=== PATIENT | male | born 1960 | race Caucasian/White ===

== ENCOUNTER 2016-11-13 18:41 | Inpatient (IN) | payer OTHER ==
[~2016-11-13] VITALS: Ht 182.9 cm; Wt 73.0 kg
[2016-11-13 20:42] LABS: Basophils # (auto) 0 uL; Basophils % (auto) 0.3 % (0.0-2.0); Eosinophils # (auto) 0.2 uL; Eosinophils % (auto) 1.3 % (0.0-7.0); Hematocrit 47.8 % (41.0-53.0); Hemoglobin 15.4 g/dL (13.5-17.5); Lymphocytes # (auto) 1.7 uL; Lymphocytes % (auto) 14.3 % (10.0-50.0); Mean Corpuscular Hemoglobin 28.2 pg (28.0-32.0); Mean Corpuscular Hgb Conc. 32.3 g/dL (32.0-36.0); Mean Corpuscular Volume 87.4 fL (80.0-100.0); Mean Platelet Volume 8.8 fL (7.4-10.4); Monocytes # (auto) 1.1 uL; Neutrophils # (auto) 9.1 uL; Neutrophils % (auto) 75.1 % (37.0-80.0); Platelet Count (auto) 349 10^3/uL (140-450); Red Cell Distribution Width 14.7 % (11.6-16.0); White Blood Cell 12.1 10^3/uL (4.4-10.8)
[2016-11-13 20:57] LABS: Albumin 3.8 g/dL (3.4-5.0); Anion Gap 9 (5-15); BUN/Creatinine Ratio 17.5; Blood Urea Nitrogen 27 mg/dL (7-18); Calcium 9.4 mg/dL (8.5-10.1); Carbon Dioxide 28 mmol/L (21-32); Chloride 104 mmol/L (98-107); GFR African American 61 mL/min; GFR Non-African American 50 mL/min; Glucose 97 mg/dL (74-106); Magnesium 2.5 mg/dL (1.6-2.6); Potassium 4.2 mmol/L (3.5-5.1); Sodium 141 mmol/L (136-145)
[2016-11-13 21:10] LABS: Alkaline Phosphatase 91 U/L (45-117); Aspartate Aminotransferase 16 U/L (15-37); Bilirubin, Total 0.6 mg/dL (0.2-1.0); Total Protein 7.5 g/dL (6.4-8.2)
[2016-11-13] MEDS ORDERED: SODIUM CHLORIDE 0.9% 1,000 ML IV ONE (21:22)
[2016-11-13] MEDS ORDERED: ASPirin 81 mg TAB PO ONE (21:30)
[2016-11-13] MEDS ORDERED: cloNIDine HCL 0.1 MG TAB PO ONE (21:30)
[2016-11-13] MEDS ORDERED: NITROGLYCERIN 0.2MG/HR TOPICAL PATCH TD ONE (22:15)
[2016-11-13 22:17] LABS: B-Type Natriuretic Peptide 16.08 pg/mL (0-100)
[2016-11-13 22:22] LABS: Partial Thromboplastin Time 24.8 sec (22.64-33.71); Prothrombin Time 10.3 sec (9.37-12.3)
[2016-11-13] MEDS: NICARDIPINE 25MG/250ML BAG KIT 250 ML IV SCH (22:54)
[2016-11-13] MEDS ORDERED: MORPHINE SULFATE 4 MG/ML SYRG ONE (23:12)
[2016-11-13] MEDS ORDERED: ONDANSETRON HCL 4 MG/2 ML VIAL ONE (23:12)
[2016-11-13] MEDS ORDERED: MORPHINE SULFATE 4 MG/ML SYRG IV ONE (23:15)
[2016-11-13] MEDS ORDERED: ONDANSETRON HCL 4 MG/2 ML VIAL IV ONE (23:15)
[2016-11-13] MEDS ORDERED: ENOXAPARIN SOD 80 MG/0.8ML SYRINGE SC ONE (23:30)
[2016-11-14] MEDS ORDERED: LACTULOSE 20Gm/30ML SOLN PO PRN (01:00)
[2016-11-14] MEDS ORDERED: MORPHINE SULF INJ 2 MG/ML SYRINGE 1ML IV PRN (01:00)
[2016-11-14] MEDS ORDERED: NITROGLYCERIN 0.4 MG SL TAB SL PRN (01:00)
[2016-11-14] MEDS ORDERED: cloNIDine HCL 0.1 MG TAB PO PRN (01:15)
[2016-11-14] MEDS ORDERED: PANTOPRAZOLE SODIUM 40 MG/10 ML VIAL IV ONE (01:15)
[2016-11-14] MEDS: SODIUM CHLORIDE 0.9% 1,000 ML IV SCH ×3 (01:25→22:32)
[2016-11-14] MEDS ORDERED: CLOPIDOGREL BISULFATE 75 MG TAB PO ONE (07:00)
[2016-11-14] MEDS: NICARDIPINE 25MG/250ML BAG KIT 250 ML IV SCH ×4 (07:15→18:35)
[2016-11-14] MEDS: NITROGLYCERIN 0.2MG/HR TOPICAL PATCH TD SCH (09:40)
[2016-11-14] MEDS: METOPROLOL TARTRATE 25 MG TAB PO SCH ×3 (09:52→22:28)
[2016-11-14] MEDS: ASPirin 81 mg TAB PO SCH (09:52)
[2016-11-14] MEDS: PANTOPRAZOLE SODIUM 40 MG/10 ML VIAL IV SCH (09:52)
[2016-11-14] MEDS: ENALAPRIL MALEATE 10 MG TAB PO SCH (09:52)
[2016-11-14] MEDS ORDERED: ENOXAPARIN SOD 30 MG/0.3 ML SYRINGE SC SCH (10:00)
[2016-11-14] MEDS ORDERED: ENOXAPARIN SOD 60 MG/0.6 ML SYRINGE SC ONE (11:30)
[2016-11-14] MEDS: ENOXAPARIN SOD 80 MG/0.8ML SYRINGE SC SCH (21:31)
[2016-11-14] MEDS: ATORVASTATIN 20 MG TAB PO SCH (21:31)
[2016-11-15 03:31] LABS: Basophils # (auto) 0 uL; Basophils % (auto) 0.4 % (0.0-2.0); Eosinophils # (auto) 0.4 uL; Eosinophils % (auto) 4.2 % (0.0-7.0); Hematocrit 43.4 % (41.0-53.0); Hemoglobin 14.1 g/dL (13.5-17.5); Lymphocytes % (auto) 19.9 % (10.0-50.0); Mean Corpuscular Hemoglobin 28.2 pg (28.0-32.0); Mean Corpuscular Hgb Conc. 32.6 g/dL (32.0-36.0); Mean Corpuscular Volume 86.6 fL (80.0-100.0); Mean Platelet Volume 8.3 fL (7.4-10.4); Monocytes # (auto) 1.4 uL; Monocytes % (auto) 13.2 % (0.0-12.0); Neutrophils # (auto) 6.4 uL; Neutrophils % (auto) 62.3 % (37.0-80.0); Platelet Count (auto) 300 10^3/uL (140-450); Red Cell Distribution Width 14.6 % (11.6-16.0); White Blood Cell 10.3 10^3/uL (4.4-10.8)
[2016-11-15 03:51] LABS: Albumin 3.1 g/dL (3.4-5.0); BUN/Creatinine Ratio 18.7; Calcium 8.1 mg/dL (8.5-10.1); Potassium 4.6 mmol/L (3.5-5.1)
[2016-11-15 03:53] LABS: Bilirubin, Total 0.9 mg/dL (0.2-1.0); Total Protein 6.5 g/dL (6.4-8.2)
[2016-11-15 04:05] VITALS: BP 132/83
[2016-11-15 07:53] VITALS: BP 129/75
[2016-11-15] MEDS: CLOPIDOGREL BISULFATE 75 MG TAB PO SCH (10:07)
[2016-11-15] MEDS: METOPROLOL TARTRATE 25 MG TAB PO SCH ×2 (10:07→21:44)
[2016-11-15] MEDS: ASPirin 81 mg TAB PO SCH (10:07)
[2016-11-15] MEDS: PANTOPRAZOLE SODIUM 40 MG/10 ML VIAL IV SCH (10:07)
[2016-11-15] MEDS: ENALAPRIL MALEATE 10 MG TAB PO SCH ×2 (10:08→21:45)
[2016-11-15] MEDS: NITROGLYCERIN 0.2MG/HR TOPICAL PATCH TD SCH (10:08)
[2016-11-15] MEDS: ENOXAPARIN SOD 80 MG/0.8ML SYRINGE SC SCH ×2 (10:09→21:45)
[2016-11-15 12:00] VITALS: BP 137/78
[2016-11-15 15:58] VITALS: BP 156/75
[2016-11-15 21:38] VITALS: BP 133/69
[2016-11-15] MEDS: ATORVASTATIN 20 MG TAB PO SCH (21:43)
[2016-11-16 04:40] VITALS: BP 132/73
[2016-11-16 09:00] VITALS: BP 121/74
[2016-11-16] MEDS: PANTOPRAZOLE SODIUM 40 MG/10 ML VIAL IV SCH (09:17)
[2016-11-16] MEDS: ASPirin 81 mg TAB PO SCH (09:18)
[2016-11-16] MEDS: ENOXAPARIN SOD 80 MG/0.8ML SYRINGE SC SCH ×2 (09:18→22:04)
[2016-11-16] MEDS: CLOPIDOGREL BISULFATE 75 MG TAB PO SCH (09:18)
[2016-11-16] MEDS: ENALAPRIL MALEATE 10 MG TAB PO SCH ×2 (09:19→22:04)
[2016-11-16] MEDS: METOPROLOL TARTRATE 25 MG TAB PO SCH ×2 (09:20→22:04)
[2016-11-16] MEDS: NITROGLYCERIN 0.2MG/HR TOPICAL PATCH TD SCH (09:20)
[2016-11-16 13:00] VITALS: BP 121/83
[2016-11-16 17:00] VITALS: BP 141/71
[2016-11-16 22:00] VITALS: BP 151/84
[2016-11-16] MEDS: ATORVASTATIN 20 MG TAB PO SCH (22:03)
[2016-11-17 05:00] VITALS: BP 135/80
[2016-11-17 07:40] VITALS: BP 125/77
[2016-11-17] MEDS: ASPirin 81 mg TAB PO SCH (10:04)
[2016-11-17] MEDS: PANTOPRAZOLE SODIUM 40 MG/10 ML VIAL IV SCH (10:04)
[2016-11-17] MEDS: METOPROLOL TARTRATE 25 MG TAB PO SCH ×2 (10:05→22:06)
[2016-11-17] MEDS: CLOPIDOGREL BISULFATE 75 MG TAB PO SCH (10:05)
[2016-11-17] MEDS: ENALAPRIL MALEATE 10 MG TAB PO SCH ×2 (10:05→22:05)
[2016-11-17] MEDS: ENOXAPARIN SOD 80 MG/0.8ML SYRINGE SC SCH ×2 (10:06→22:04)
[2016-11-17] MEDS ORDERED: ACETAMINOPHEN 325 MG TAB PO PRN (11:00)
[2016-11-17 12:00] VITALS: BP 137/82
[2016-11-17 16:42] VITALS: BP 119/74
[2016-11-17 22:00] VITALS: BP 132/80
[2016-11-17] MEDS: ATORVASTATIN 20 MG TAB PO SCH (22:05)
[2016-11-18] VITALS (7 sets, daily range): BP systolic 124–149; BP diastolic 80–94
[2016-11-18] MEDS ORDERED: SODIUM BICARBONATE 50ML VIAL 150 ML in D5W 5% 1,000 ML IV SCH ×2 (09:00→10:00)
[2016-11-18] MEDS: ENALAPRIL MALEATE 10 MG TAB PO SCH ×2 (09:43→21:51)
[2016-11-18] MEDS: PANTOPRAZOLE SODIUM 40 MG/10 ML VIAL IV SCH (09:43)
[2016-11-18] MEDS: METOPROLOL TARTRATE 25 MG TAB PO SCH ×2 (10:00→21:51)
[2016-11-18] MEDS: ASPirin 81 mg TAB PO SCH (11:36)
[2016-11-18] MEDS: CLOPIDOGREL BISULFATE 75 MG TAB PO SCH (11:36)
[2016-11-18] MEDS: ENOXAPARIN SOD 80 MG/0.8ML SYRINGE SC SCH (11:37)
[2016-11-18] MEDS: ATORVASTATIN 20 MG TAB PO SCH (21:50)
[2016-11-19 06:06] VITALS: BP 123/79
[2016-11-19 06:40] LABS: Basophils # (auto) 0 uL; Basophils % (auto) 0.3 % (0.0-2.0); Eosinophils # (auto) 0.5 uL; Eosinophils % (auto) 6.7 % (0.0-7.0); Hematocrit 48.2 % (41.0-53.0); Hemoglobin 15.8 g/dL (13.5-17.5); Lymphocytes # (auto) 1.7 uL; Lymphocytes % (auto) 22.2 % (10.0-50.0); Mean Corpuscular Hemoglobin 28.2 pg (28.0-32.0); Mean Corpuscular Hgb Conc. 32.8 g/dL (32.0-36.0); Mean Corpuscular Volume 85.8 fL (80.0-100.0); Mean Platelet Volume 8.5 fL (7.4-10.4); Monocytes % (auto) 12.4 % (0.0-12.0); Neutrophils # (auto) 4.5 uL; Neutrophils % (auto) 58.4 % (37.0-80.0); Platelet Count (auto) 277 10^3/uL (140-450); Red Cell Distribution Width 14.3 % (11.6-16.0); White Blood Cell 7.7 10^3/uL (4.4-10.8)
[2016-11-19 07:08] LABS: BUN/Creatinine Ratio 22.3; Calcium 9.2 mg/dL (8.5-10.1)
[2016-11-19] MEDS ORDERED: IODIXANOL 320MG/ML 100ML BTL IV ONE (07:30)
[2016-11-19] MEDS ORDERED: LIDOCAINE 2%HCL (LOCAL ANESTH.) INJ 20ML MDV ONE (07:31)
[2016-11-19] MEDS ORDERED: SODIUM CHL 0.9% 0 ML ONE (07:44)
[2016-11-19] MEDS ORDERED: ANGIOMAX 250 MG VIAL IV ONE (07:44)
[2016-11-19] MEDS ORDERED: MIDAZOLAM HCL 1MG/1ML-2 ML VIAL ONE (07:44)
[2016-11-19] MEDS ORDERED: fentaNYL CITRATE 100 MCG/2 ML VL ONE (07:44)
[2016-11-19] MEDS ORDERED: EPTIFIBATIDE INJ (2MG/ML) 10ML VIAL IV ONE (07:45)
[2016-11-19] MEDS ORDERED: VERAPAMIL 2.5MG/ML INJ 2ML VIAL IV ONE (07:45)
[2016-11-19] MEDS ORDERED: SODIUM BICARBONATE 50ML VIAL 150 ML in D5W 5% 1,000 ML IV SCH (08:00)
[2016-11-19 09:12] VITALS: BP 149/75
[2016-11-19] MEDS ORDERED: SODIUM CHLORIDE 0.9% 1,000 ML IV SCH (09:15)
[2016-11-19] MEDS: ASPirin 81 mg TAB PO SCH (10:24)
[2016-11-19] MEDS: METOPROLOL TARTRATE 25 MG TAB PO SCH ×2 (10:24→21:30)
[2016-11-19] MEDS: PANTOPRAZOLE SODIUM 40 MG/10 ML VIAL IV SCH (10:25)
[2016-11-19] MEDS: ENALAPRIL MALEATE 10 MG TAB PO SCH ×2 (10:25→21:30)
[2016-11-19 12:30] VITALS: BP 137/75
[2016-11-19 17:02] VITALS: BP 120/76
[2016-11-19 18:00] VITALS: BP 132/69
[2016-11-19] MEDS: ATORVASTATIN 20 MG TAB PO SCH (21:29)
[2016-11-20 05:00] VITALS: BP 133/77
[2016-11-20 07:30] LABS: BUN/Creatinine Ratio 21.3; Calcium 9.2 mg/dL (8.5-10.1); Potassium 4.8 mmol/L (3.5-5.1)
[2016-11-20 09:00] VITALS: BP 99/50
[2016-11-20] MEDS: ASPirin 81 mg TAB PO SCH (09:14)
[2016-11-20] MEDS: ENALAPRIL MALEATE 10 MG TAB PO SCH ×2 (09:14→21:39)
[2016-11-20] MEDS: METOPROLOL TARTRATE 25 MG TAB PO SCH ×2 (09:15→21:39)
[2016-11-20] MEDS: CLOPIDOGREL BISULFATE 75 MG TAB PO SCH (09:16)
[2016-11-20] MEDS: PANTOPRAZOLE SODIUM 40 MG/10 ML VIAL IV SCH (09:16)
[2016-11-20 12:48] VITALS: BP 125/77
[2016-11-20 16:38] VITALS: BP 108/71
[2016-11-20 18:21] VITALS: BP 119/74
[2016-11-20 21:35] VITALS: BP 122/69
[2016-11-20] MEDS: ATORVASTATIN 20 MG TAB PO SCH (21:38)
[2016-11-21 04:59] VITALS: BP 139/73
[2016-11-21 08:00] VITALS: BP 119/68
[2016-11-21] MEDS: PANTOPRAZOLE SODIUM 40 MG/10 ML VIAL IV SCH (10:00)
[2016-11-21] MEDS: CLOPIDOGREL BISULFATE 75 MG TAB PO SCH (10:00)
[2016-11-21] MEDS: ASPirin 81 mg TAB PO SCH (10:00)
[2016-11-21] MEDS: METOPROLOL TARTRATE 25 MG TAB PO SCH (10:21)
[2016-11-21] MEDS: ENALAPRIL MALEATE 10 MG TAB PO SCH (10:22)
[2016-11-21 12:30] VITALS: BP 124/68
[2016-11-21 17:00] VITALS: BP 116/71
== END 2016-11-21 18:15 | disposition left against medical advice (07) | DRG 190 ==
LOC: ER 18:45 → TELE 18:46 → DOU IN ICU 11-15 03:44 → TELE-EAST 11-15 17:35
PROVIDERS: ADMIT Family Medicine; ATTEND Internal Medicine
PROC: 4A023N7 Measurement of Cardiac Sampling and Pressure, Left Heart, Percutaneous Approach (ICD-10-PCS; principal; 2016-11-19)
PROC: B2111ZZ Fluoroscopy of Multiple Coronary Arteries using Low Osmolar Contrast (ICD-10-PCS; 2016-11-19)
PROC: B2151ZZ Fluoroscopy of Left Heart using Low Osmolar Contrast (ICD-10-PCS; 2016-11-19)
PROC: B41G1ZZ Fluoroscopy of Left Lower Extremity Arteries using Low Osmolar Contrast (ICD-10-PCS; 2016-11-19)
DX: I21.4 Non-ST elevation (NSTEMI) myocardial infarction (principal); N17.0 Acute kidney failure with tubular necrosis; I10 Essential (primary) hypertension; F15.10 Other stimulant abuse, uncomplicated; I25.10 Atherosclerotic heart disease of native coronary artery without angina pectoris; E78.5 Hyperlipidemia, unspecified; F12.90 Cannabis use, unspecified, uncomplicated; F17.210 Nicotine dependence, cigarettes, uncomplicated; I25.2 Old myocardial infarction; Z95.5 Presence of coronary angioplasty implant and graft; Z71.51 Drug abuse counseling and surveillance of drug abuser; Z91.19 Patient's noncompliance with other medical treatment and regimen; Z84.89 Family history of other specified conditions; Z80.9 Family history of malignant neoplasm, unspecified
CPT/HCPCS: 93458; 96372; 96374; 96375; 99285; G0278; 36415; 36600; 70450; 71010; 71020; 71250; 74176; 80048; 80053; 80061; 82805; 83690; 83735; 83880; 84439; 84443; 84481; 84484; 85025; 85379; 85610; 85730; 86703; 87081; 93005; 93306; 93886; 94761; 99152; C9113; G0434; J2250; J2405; Q9967

== ENCOUNTER 2018-07-22 05:38 | Emergency (ER) | payer OTHER ==
[~2018-07-22] VITALS: Ht 182.9 cm; Wt 81.6 kg
[2018-07-22 07:23] VITALS: BP 148/81
[2018-07-22] MEDS ORDERED: cefTRIAXone SOD 1,000 MG VL IM ONE (07:30)
[2018-07-22] MEDS ORDERED: TETANUS-DIPTH-ACEL PERTUSSIS 0.5ML SYRG IM ONE (07:30)
== END 2018-07-22 08:01 | disposition home or self-care (01) ==
LOC: ER 05:40
DX: S51.832A Puncture wound without foreign body of left forearm, initial encounter (principal); B99.9 Unspecified infectious disease; F17.210 Nicotine dependence, cigarettes, uncomplicated; F12.10 Cannabis abuse, uncomplicated; I10 Essential (primary) hypertension; I25.2 Old myocardial infarction; E78.5 Hyperlipidemia, unspecified; W54.0XXA Bitten by dog, initial encounter; Y93.89 Activity, other specified; Y99.8 Other external cause status; Y92.89 Other specified places as the place of occurrence of the external cause
CPT/HCPCS: 90471; 90715; 96372; 99284; J0696

== ENCOUNTER 2019-09-04 02:48 | Emergency (ER) | payer OTHER ==
[~2019-09-04] VITALS: Ht 182.9 cm; Wt 77.1 kg
[2019-09-04 03:10] VITALS: BP 167/99
[2019-09-04] MEDS ORDERED: HYDROcodone-ACET 10/325MG TAB PO ONE (05:00)
[2019-09-04] MEDS ORDERED: AMOXICILLIN/CLAVUL 875 MG TAB PO ONE (05:00)
[2019-09-04] MEDS ORDERED: cefTRIAXone SOD 1,000 MG VL IM ONE (05:00)
== END 2019-09-04 06:42 | disposition home or self-care (01) ==
LOC: ER 02:53
DX: S41.112A Laceration without foreign body of left upper arm, initial encounter (principal); S41.152A Open bite of left upper arm, initial encounter; E78.5 Hyperlipidemia, unspecified; I10 Essential (primary) hypertension; I25.2 Old myocardial infarction; F17.210 Nicotine dependence, cigarettes, uncomplicated; W54.0XXA Bitten by dog, initial encounter; Y93.01 Activity, walking, marching and hiking; Y92.89 Other specified places as the place of occurrence of the external cause; Y99.8 Other external cause status
CPT/HCPCS: 12001; 73090; 73120; 96372; 99284; J0696; 12002

== ENCOUNTER 2022-08-28 23:11 | Inpatient (IN) | payer OTHER ==
[~2022-08-28] VITALS: Ht 185.4 cm; Wt 77.3 kg
[2022-08-29 00:47] LABS: Basophils # (auto) 0.1 10 ^3/uL (0-0.2); Basophils % (auto) 0.9 % (0.0-2.0); Eosinophils # (auto) 0.1 10 ^3/uL (0-0.8); Eosinophils % (auto) 1.2 % (0.0-7.0); Hematocrit 47.1 % (41.0-53.0); Hemoglobin 15.1 g/dL (13.5-17.5); Lymphocytes # (auto) 2.2 10 ^3/uL (0.4-5.4); Lymphocytes % (auto) 21.3 % (10.0-50.0); Mean Corpuscular Hemoglobin 27.9 pg (28.0-32.0); Mean Corpuscular Volume 87.2 fL (80.0-100.0); Monocytes # (auto) 0.8 10 ^3/uL (0-1.3); Monocytes % (auto) 8.1 % (0.0-12.0); Neutrophils % (auto) 68.5 % (37.0-80.0); Nucleated Red Blood Cells % 0.1 %; Red Blood Cells 5.41 10^6/uL (4.5-5.90); Red Cell Distribution Width 14.3 % (11.8-14.3); White Blood Cell 10.2 10^3/uL (4.4-10.8)
[2022-08-29 01:04] LABS: Albumin 3.6 g/dL (3.4-5.0); BUN/Creatinine Ratio 16.9; Calcium 9.5 mg/dL (8.5-10.1); Potassium 4.4 mmol/L (3.5-5.1)
[2022-08-29 01:07] LABS: Bilirubin, Total 1.1 mg/dL (0.2-1.0); Total Protein 7.6 g/dL (6.4-8.2)
[2022-08-29 02:38] LABS: Urine Bacteria NONE SEEN /hpf (None Seen); Urine Blood Negative /uL (Negative); Urine Hyaline Cast FEW /lpf (0 - 2); Urine Mucus FEW (None Seen); Urine Specific Gravity 1.029 (1.001-1.035); Urine WBC 2 /hpf (0 - 3)
[2022-08-29] MEDS ORDERED: ONDANSETRON HCL 4 MG/2 ML VIAL IV PRN (12:00)
[2022-08-29] MEDS ORDERED: NITROGLYCERIN 0.4 MG SL TAB SL PRN (12:00)
[2022-08-29] MEDS ORDERED: MORPHINE SULFATE INJ 2 MG/ml SYRG IV PRN (12:00)
[2022-08-29] MEDS ORDERED: ALBUTEROL SULF 2.5 MG/0.5ML(0.5%) NEB SOLN NEB PRN (12:00)
[2022-08-29] MEDS ORDERED: DOCUSATE SOD 100 MG CAP PO PRN (12:00)
[2022-08-29] MEDS ORDERED: IPRATROPIUM BROM 0.5 MG/2.5ML INH SOL NEB PRN (12:00)
[2022-08-29 12:55] LABS: INR 1.06 (0.9-1.15)
[2022-08-29] MEDS ORDERED: IOHEXOL 350 MG/ML 100ML IJ ONE (14:30)
[2022-08-29] MEDS: SODIUM CHLORIDE 0.9% 1,000 ML IV SCH ×2 (15:27→20:20)
[2022-08-29] MEDS: methylPREDNISolone SOD SUCC 125 MG/2 ML VL IV ONE ×2 (15:28→17:08)
[2022-08-29 16:22] LABS: Cholesterol 112 mg/dL (< 200); HDL Cholesterol 40 mg/dL (40-59); LDL Cholesterol 70 mg/dL (< 100); Triglycerides 71 mg/dL (< 150)
[2022-08-29] MEDS: methylPREDNISolone SOD SUCC 125 MG/2 ML VL IV SCH ×2 (17:13→22:59)
[2022-08-29 22:52] VITALS: BP 144/83
[2022-08-29] MEDS: ENOXAPARIN SOD 80 MG/0.8ML SYRINGE SC SCH (22:59)
[2022-08-29] MEDS: ATORVASTATIN 20 MG TAB PO SCH (22:59)
[2022-08-29] MEDS ORDERED: ERGO1CAP12 PO (23:13)
[2022-08-29] MEDS ORDERED: ASPI-325 PO (23:13)
[2022-08-29] MEDS ORDERED: MET25T PO (23:13)
[2022-08-29] MEDS ORDERED: ATOR20TA50 PO (23:13)
[2022-08-30] MEDS: SODIUM CHLORIDE 0.9% 1,000 ML IV SCH ×2 (04:40→11:49)
[2022-08-30 04:57] VITALS: BP 140/80
[2022-08-30] MEDS: methylPREDNISolone SOD SUCC 125 MG/2 ML VL IV SCH ×3 (05:20→20:53)
[2022-08-30 06:23] LABS: Hemoglobin 14.5 g/dL (13.5-17.5); Mean Corpuscular Hemoglobin 29.3 pg (28.0-32.0); Mean Corpuscular Hgb Conc. 34.4 g/dL (32.0-36.0); Mean Corpuscular Volume 85.2 fL (80.0-100.0); Red Blood Cells 4.93 10^6/uL (4.5-5.90); Red Cell Distribution Width 14.1 % (11.8-14.3); White Blood Cell 11.2 10^3/uL (4.4-10.8)
[2022-08-30 06:41] LABS: Albumin 3.2 g/dL (3.4-5.0); BUN/Creatinine Ratio 18.3; Calcium 9.1 mg/dL (8.5-10.1); Potassium 4.3 mmol/L (3.5-5.1)
[2022-08-30 06:44] LABS: Bilirubin, Total 0.7 mg/dL (0.2-1.0); Total Protein 6.8 g/dL (6.4-8.2)
[2022-08-30 06:54] LABS: Basophils % (manual) 0 (0.0-2.0); Blast Cells 0; Eosinophils % (manual) 0 (0-7); Metamyelocytes % 0; Myelocytes % 0; Promyelocytes % 0; Reactive Lymphocytes 0
[2022-08-30 08:00] VITALS: BP 148/95
[2022-08-30] MEDS: LISINOPRIL 10 MG TAB PO SCH (08:46)
[2022-08-30] MEDS: ENOXAPARIN SOD 80 MG/0.8ML SYRINGE SC SCH ×2 (08:47→20:53)
[2022-08-30] MEDS: PANTOPRAZOLE 40 MG TAB PO SCH (08:53)
[2022-08-30 08:56] VITALS: BP 148/95
[2022-08-30] MEDS ORDERED: ENOXAPARIN SOD 40 MG/0.4 ML SYRINGE SC SCH (10:00)
[2022-08-30 13:00] VITALS: BP 157/86
[2022-08-30] MEDS ORDERED: METOPROLOL TARTRATE 25 MG TAB PO ONE (13:00)
[2022-08-30 13:36] LABS: Band Neutrophils % (manual) 10; Lymphocytes % (manual) 5 (10.0-50.0); Monocytes % (manual) 1 (0-12)
[2022-08-30] MEDS: ASPirin 81 mg TAB PO SCH (13:38)
[2022-08-30 17:00] VITALS: BP 134/84
[2022-08-30] MEDS: ATORVASTATIN 20 MG TAB PO SCH (20:53)
[2022-08-30] MEDS: METOPROLOL TARTRATE 25 MG TAB PO SCH (20:54)
[2022-08-30 22:00] VITALS: BP 122/68
[2022-08-31 05:00] VITALS: BP 112/67
[2022-08-31] MEDS: methylPREDNISolone SOD SUCC 125 MG/2 ML VL IV SCH ×2 (05:50→14:20)
[2022-08-31 08:00] VITALS: BP 142/79
[2022-08-31 09:00] VITALS: BP 142/79
[2022-08-31] MEDS ORDERED: cefTRIAXone 1GM/50ML D5W 50 ML IV SCH (09:30)
[2022-08-31] MEDS ORDERED: AZITHROMYCIN 250 MG TAB PO SCH (10:00)
[2022-08-31] MEDS: ASPirin 81 mg TAB PO SCH (10:04)
[2022-08-31] MEDS: PANTOPRAZOLE 40 MG TAB PO SCH (10:04)
[2022-08-31] MEDS: METOPROLOL TARTRATE 25 MG TAB PO SCH (10:05)
[2022-08-31] MEDS: LISINOPRIL 10 MG TAB PO SCH (10:05)
[2022-08-31] MEDS: ENOXAPARIN SOD 80 MG/0.8ML SYRINGE SC SCH (10:05)
[2022-08-31 13:00] VITALS: BP 120/72
[2022-08-31] MEDS ORDERED: ALBUAER3 IN (13:06)
[2022-08-31] MEDS ORDERED: AZIT250T8 PO (13:06)
[2022-08-31] MEDS ORDERED: LISI-716 PO (13:06)
[2022-08-31] MEDS ORDERED: METH4PAK PO (13:06)
[2022-08-31 15:25] VITALS: BP 120/72
== END 2022-08-31 17:03 | disposition home or self-care (01) | DRG 140 ==
LOC: ER 23:11 → TELE 08-29 12:01 → TELE-WESTW 08-29 22:11
PROVIDERS: ADMIT Nurse Practitioner Family; ATTEND Internal Medicine
DX: J44.1 Chronic obstructive pulmonary disease with (acute) exacerbation (principal); E05.90 Thyrotoxicosis, unspecified without thyrotoxic crisis or storm; E78.5 Hyperlipidemia, unspecified; F15.10 Other stimulant abuse, uncomplicated; F17.210 Nicotine dependence, cigarettes, uncomplicated; I10 Essential (primary) hypertension; R09.02 Hypoxemia; R06.03 Acute respiratory distress; Z20.822 Contact with and (suspected) exposure to COVID-19; Z59.00 Homelessness unspecified; Z98.61 Coronary angioplasty status; Z85.810 Personal history of malignant neoplasm of tongue; I25.2 Old myocardial infarction
CPT/HCPCS: 36415; 36600; 70486; 70490; 71045; 71275; 80053; 80061; 81001; 82805; 83880; 84443; 84484; 85007; 85025; 85027; 85379; 85610; 87426; 87804; 93005; 93306; 94640; 96374; G0378; J0696

== ENCOUNTER 2022-09-06 17:30 | Emergency (ER) | payer OTHER ==
[~2022-09-06] VITALS: Ht 182.9 cm; Wt 85.0 kg
[~2022-09-06 17:30] MED LIST: ALBUAER3 IN; ASPI-325 PO; ATOR20TA50 PO; AZIT250T8 PO; ERGO1CAP12 PO; LISI-716 PO; MET25T PO; METH4PAK PO
[2022-09-06 18:03] LABS: Basophils # (auto) 0.1 10 ^3/uL (0-0.2); Basophils % (auto) 0.5 % (0.0-2.0); Eosinophils # (auto) 0 10 ^3/uL (0-0.8); Eosinophils % (auto) 0.2 % (0.0-7.0); Hematocrit 51.2 % (41.0-53.0); Lymphocytes # (auto) 0.6 10 ^3/uL (0.4-5.4); Lymphocytes % (auto) 4.1 % (10.0-50.0); Mean Corpuscular Hemoglobin 28.8 pg (28.0-32.0); Mean Corpuscular Hgb Conc. 33.2 g/dL (32.0-36.0); Mean Corpuscular Volume 86.7 fL (80.0-100.0); Monocytes % (auto) 6.5 % (0.0-12.0); Neutrophils # (auto) 13.6 10 ^3/uL (1.6-8.6); Neutrophils % (auto) 88.7 % (37.0-80.0); Nucleated Red Blood Cells % 0.1 %; Red Blood Cells 5.91 10^6/uL (4.5-5.90); Red Cell Distribution Width 14.6 % (11.8-14.3); White Blood Cell 15.3 10^3/uL (4.4-10.8)
[2022-09-06 18:18] LABS: Alanine Aminotransferase 51 U/L (16-61); Albumin 3.5 g/dL (3.4-5.0); Anion Gap 5 (5-15); Aspartate Aminotransferase 17 U/L (15-37); BUN/Creatinine Ratio 25.4; Blood Urea Nitrogen 34 mg/dL (7-18); Calcium 9.1 mg/dL (8.5-10.1); Carbon Dioxide 31 mmol/L (21-32); Chloride 101 mmol/L (98-107); GFR African American 70 mL/min; GFR Non-African American 58 mL/min; Glucose 83 mg/dL (74-106); Potassium 5.1 mmol/L (3.5-5.1); Sodium 137 mmol/L (136-145)
[2022-09-06 18:20] LABS: Alkaline Phosphatase 72 U/L (45-117); Bilirubin, Total 1.2 mg/dL (0.2-1.0); Total Protein 6.8 g/dL (6.4-8.2)
[2022-09-06] MEDS ORDERED: IOHEXOL 350 MG/ML 100ML IJ ONE ×2 (19:58→20:02)
[2022-09-06] MEDS ORDERED: cefTRIAXone 1GM/50ML D5W 50 ML IV ONE (20:45)
[2022-09-06] MEDS ORDERED: SODIUM CHLORIDE 0.9% 1,000 ML IV ONE ×2 (20:45)
[2022-09-06] MEDS ORDERED: metroNIDAZOLE 500MG/100ML 100 ML IV ONE (20:45)
[2022-09-06] MEDS ORDERED: MORPHINE SULFATE 4 MG/ML SYR/VIAL IV ONE (21:00)
[2022-09-06] MEDS ORDERED: ONDANSETRON HCL 4 MG/2 ML VIAL IV ONE (21:00)
[2022-09-06 21:47] VITALS: BP 126/70
== END 2022-09-06 22:03 | disposition short-term general hospital (02) ==
LOC: ER 17:30
DX: U07.1 COVID-19 (principal); K29.70 Gastritis, unspecified, without bleeding; I71.02 Dissection of abdominal aorta; I10 Essential (primary) hypertension; I25.2 Old myocardial infarction; E78.5 Hyperlipidemia, unspecified; E03.9 Hypothyroidism, unspecified; J44.9 Chronic obstructive pulmonary disease, unspecified; F17.210 Nicotine dependence, cigarettes, uncomplicated; Z79.82 Long term (current) use of aspirin; Z79.899 Other long term (current) drug therapy
CPT/HCPCS: 36415; 71045; 74175; 74176; 80053; 83605; 84484; 85025; 87040; 87426; 93005; 96365; 96368; 96375; 99285; J0696; J2270; J2405; J3490; J7030; Q9967

== ENCOUNTER 2023-03-25 16:38 | Inpatient (IN) | payer OTHER ==
[~2023-03-25] VITALS: Ht 182.9 cm; Wt 64.8 kg
[~2023-03-25 16:38] MED LIST changes: +AZIT-81 PO; -AZIT250T8 PO; -LISI-716 PO; +LISI10TA34 PO
[2023-03-25] MEDS ORDERED: SODIUM CHLORIDE 0.9% 500 ML IV ONE (17:00)
[2023-03-25] MEDS ORDERED: ONDANSETRON HCL 4 MG/2 ML VIAL IV ONE (17:00)
[2023-03-25 17:39] LABS: Albumin 3.9 g/dL (3.4-5.0); Calcium 9.6 mg/dL (8.5-10.1); Potassium 4.3 mmol/L (3.5-5.1)
[2023-03-25 17:42] LABS: BUN/Creatinine Ratio 11.5 (10.0-20.0); Total Protein 7.4 g/dL (6.4-8.2)
[2023-03-25 18:10] LABS: Basophils # (auto) 0 10 ^3/uL (0-0.2); Basophils % (auto) 0.2 % (0.0-2.0); Eosinophils # (auto) 0.1 10 ^3/uL (0-0.8); Eosinophils % (auto) 0.3 % (0.0-7.0); Hematocrit 46.9 % (41.0-53.0); Hemoglobin 15.1 g/dL (13.5-17.5); Lymphocytes # (auto) 1.9 10 ^3/uL (0.4-5.4); Lymphocytes % (auto) 10.4 % (10.0-50.0); Mean Corpuscular Hemoglobin 28.1 pg (28.0-32.0); Mean Corpuscular Hgb Conc. 32.2 g/dL (32.0-36.0); Mean Corpuscular Volume 87.4 fL (80.0-100.0); Monocytes # (auto) 1.6 10 ^3/uL (0-1.3); Monocytes % (auto) 8.8 % (0.0-12.0); Neutrophils # (auto) 14.5 10 ^3/uL (1.6-8.6); Neutrophils % (auto) 80.3 % (37.0-80.0); Nucleated Red Blood Cells % 0.3 %; Red Blood Cells 5.36 10^6/uL (4.5-5.90); Red Cell Distribution Width 14.5 % (11.8-14.3)
[2023-03-25] MEDS ORDERED: metroNIDAZOLE 500MG/100ML 100 ML IV ONE (23:45)
[2023-03-25] MEDS ORDERED: LACTATED RINGER'S 1,850 ML IV ONE (23:45)
[2023-03-25] MEDS ORDERED: CIPROFLOXACIN 400MG/200ML 200 ML IV ONE (23:45)
[2023-03-26] MEDS ORDERED: ONDANSETRON HCL 4 MG/2 ML VIAL IV ONE (00:15)
[2023-03-26] MEDS ORDERED: HYDROcodone-ACET 5/325MG TAB PO PRN (00:15)
[2023-03-26] MEDS ORDERED: SODIUM CHLORIDE 0.9% 1,000 ML IV SCH (00:15)
[2023-03-26] MEDS ORDERED: MORPHINE SULFATE INJ 2 MG/ml SYRG IV PRN ×2 (00:15)
[2023-03-26] MEDS ORDERED: NITROGLYCERIN 0.4 MG SL TAB SL PRN (00:15)
[2023-03-26] MEDS ORDERED: ACETAMINOPHEN 325 MG TAB PO PRN (00:15)
[2023-03-26] MEDS ORDERED: MORPHINE SULFATE 4 MG/ML SYR/VIAL IV ONE (00:15)
[2023-03-26] MEDS ORDERED: ONDANSETRON HCL 4 MG/2 ML VIAL IV PRN (00:15)
[2023-03-26 01:22] VITALS: PULSE 98; RESP 20; O2SAT 98
[2023-03-26] MEDS: PIPERACILLIN-TAZOB 2.25GM 50 ML IV SCH ×3 (01:33→22:26)
[2023-03-26 02:00] VITALS: PULSE 97; RESP 18; O2SAT 95
[2023-03-26 08:00] VITALS: PULSE 102; RESP 16; O2SAT 96
[2023-03-26] MEDS: SODIUM CHLORIDE 0.9% 1,000 ML IV SCH ×2 (11:44→22:27)
[2023-03-26 13:45] LABS: Basophils # (auto) 0.1 10 ^3/uL (0-0.2); Basophils % (auto) 0.5 % (0.0-2.0); Eosinophils # (auto) 0 10 ^3/uL (0-0.8); Eosinophils % (auto) 0.1 % (0.0-7.0); Hematocrit 40.5 % (41.0-53.0); Hemoglobin 13.1 g/dL (13.5-17.5); Lymphocytes # (auto) 0.7 10 ^3/uL (0.4-5.4); Lymphocytes % (auto) 4.7 % (10.0-50.0); Mean Corpuscular Hemoglobin 28.1 pg (28.0-32.0); Mean Corpuscular Hgb Conc. 32.5 g/dL (32.0-36.0); Mean Corpuscular Volume 86.5 fL (80.0-100.0); Monocytes % (auto) 6.7 % (0.0-12.0); Neutrophils # (auto) 12.6 10 ^3/uL (1.6-8.6); Red Blood Cells 4.68 10^6/uL (4.5-5.90); Red Cell Distribution Width 14.7 % (11.8-14.3); White Blood Cell 14.3 10^3/uL (4.4-10.8)
[2023-03-26 13:48] LABS: Calcium 8.8 mg/dL (8.5-10.1); Potassium 4.5 mmol/L (3.5-5.1)
[2023-03-26 13:52] LABS: BUN/Creatinine Ratio 17.1 (10.0-20.0)
[2023-03-26] MEDS ORDERED: SODIUM CHLORIDE 0.9% 500 ML IV ONE (14:30)
[2023-03-26 14:56] LABS: Basophils # (auto) 0 10 ^3/uL (0-0.2); Basophils % (auto) 0.2 % (0.0-2.0); Eosinophils # (auto) 0 10 ^3/uL (0-0.8); Eosinophils % (auto) 0.1 % (0.0-7.0); Hematocrit 37.8 % (41.0-53.0); Hemoglobin 12.2 g/dL (13.5-17.5); Lymphocytes # (auto) 0.9 10 ^3/uL (0.4-5.4); Mean Corpuscular Hemoglobin 28.4 pg (28.0-32.0); Mean Corpuscular Hgb Conc. 32.3 g/dL (32.0-36.0); Mean Corpuscular Volume 87.9 fL (80.0-100.0); Monocytes # (auto) 0.7 10 ^3/uL (0-1.3); Monocytes % (auto) 4.9 % (0.0-12.0); Neutrophils # (auto) 12.7 10 ^3/uL (1.6-8.6); Neutrophils % (auto) 88.8 % (37.0-80.0); Red Cell Distribution Width 14.4 % (11.8-14.3); White Blood Cell 14.4 10^3/uL (4.4-10.8)
[2023-03-26 17:20] LABS: Urine Bacteria FEW /hpf (None Seen); Urine Blood Negative /uL (Negative); Urine Hyaline Cast FEW /lpf (0 - 2); Urine Specific Gravity 1.009 (1.001-1.035); Urine WBC 2 /hpf (0 - 3)
[2023-03-26 17:43] LABS: Protein, Urine 23.6 mg/dL (0.0-11.9)
[2023-03-26 19:30] VITALS: PULSE 117; RESP 13; O2SAT 100
[2023-03-26] MEDS: HEPARIN SODIUM (PORCINE) 5000 UNITS/ML 1ML VIAL SC SCH (22:27)
[2023-03-27 05:02] LABS: Basophils # (auto) 0 10 ^3/uL (0-0.2); Basophils % (auto) 0.1 % (0.0-2.0); Eosinophils # (auto) 0 10 ^3/uL (0-0.8); Eosinophils % (auto) 0.1 % (0.0-7.0); Hematocrit 36.2 % (41.0-53.0); Hemoglobin 12.1 g/dL (13.5-17.5); Lymphocytes # (auto) 0.6 10 ^3/uL (0.4-5.4); Mean Corpuscular Hemoglobin 28.8 pg (28.0-32.0); Mean Corpuscular Hgb Conc. 33.5 g/dL (32.0-36.0); Monocytes # (auto) 1.7 10 ^3/uL (0-1.3); Monocytes % (auto) 12.8 % (0.0-12.0); Neutrophils # (auto) 10.6 10 ^3/uL (1.6-8.6); Red Blood Cells 4.21 10^6/uL (4.5-5.90); Red Cell Distribution Width 14.4 % (11.8-14.3); White Blood Cell 12.9 10^3/uL (4.4-10.8)
[2023-03-27 05:21] LABS: Albumin 2.1 g/dL (3.4-5.0); Calcium 6.7 mg/dL (8.5-10.1); Magnesium 1.6 mg/dL (1.6-2.6); Potassium 4.1 mmol/L (3.5-5.1)
[2023-03-27 05:25] LABS: BUN/Creatinine Ratio 22.2 (10.0-20.0); Bilirubin, Total 1.2 mg/dL (0.2-1.0); Phosphorus 2.6 mg/dL (2.5-4.90); Total Protein 4.7 g/dL (6.4-8.2)
[2023-03-27 08:00] VITALS: PULSE 98; RESP 20; O2SAT 97
[2023-03-27] MEDS: SODIUM CHLORIDE 0.9% 1,000 ML IV SCH ×2 (09:34→17:30)
[2023-03-27] MEDS: HEPARIN SODIUM (PORCINE) 5000 UNITS/ML 1ML VIAL SC SCH ×2 (10:07→21:59)
[2023-03-27] MEDS: FAMOTIDINE 20 MG TAB PO SCH (10:08)
[2023-03-27] MEDS: PIPERACILLIN-TAZOB 2.25GM 50 ML IV SCH (10:08)
[2023-03-27 19:50] VITALS: BP 88/55; PULSE 102; PULSE 103; RESP 16; TEMP 97.5; TEMP 97.8; O2SAT 98
[2023-03-27 20:00] VITALS: PULSE 103
[2023-03-27 20:55] VITALS: BP 110/65
[2023-03-27 21:43] VITALS: BP 110/65; PULSE 103; RESP 18; TEMP 98.3; O2SAT 98
[2023-03-27] MEDS: PIPERACILLIN-TAZOB 3.375GM 100 ML IV SCH ×2 (21:51→21:58)
[2023-03-28] VITALS: BP 100/62; PULSE 95; RESP 16; TEMP 97.9; O2SAT 98
[2023-03-28] MEDS: PIPERACILLIN-TAZOB 3.375GM 100 ML IV SCH ×2 (02:45→09:06)
[2023-03-28] MEDS: SODIUM CHLORIDE 0.9% 1,000 ML IV SCH (03:30)
[2023-03-28 04:46] VITALS: BP 98/64; PULSE 95; RESP 18; TEMP 97.5; O2SAT 99
[2023-03-28 05:43] LABS: Potassium 4.4 mmol/L (3.5-5.1)
[2023-03-28 05:50] LABS: Albumin 2.3 g/dL (3.4-5.0); BUN/Creatinine Ratio 18.5 (10.0-20.0); Total Protein 5.2 g/dL (6.4-8.2)
[2023-03-28 08:00] VITALS: BP 108/68; PULSE 82; PULSE 89; RESP 16; TEMP 97.3; O2SAT 98
[2023-03-28] MEDS: FAMOTIDINE 20 MG TAB PO SCH (09:06)
[2023-03-28] MEDS: HEPARIN SODIUM (PORCINE) 5000 UNITS/ML 1ML VIAL SC SCH (09:15)
[2023-03-28] MEDS ORDERED: FAMO20TA10 PO (11:56)
[2023-03-28] MEDS ORDERED: METR-344 PO (11:56)
[2023-03-28] MEDS ORDERED: CIPR-173 PO (12:27)
[2023-03-28 13:00] VITALS: BP 107/70; PULSE 83; RESP 20; TEMP 98.2; O2SAT 99
[2023-03-30 10:26] LABS: Hepatitis B Surface Antibody Negative (Negative)
[2023-03-30 10:38] LABS: Hepatitis A Total Antibody Positive (Negative)
[2023-03-30 12:15] LABS: Hepatitis A Ab IgM Negative
[2023-03-30 12:16] LABS: Hepatitis B Core IgM Negative
[2023-03-30 12:18] LABS: Hepatitis C Antibody Negative (Negative)
== END 2023-03-28 17:35 | disposition home or self-care (01) | DRG 249 ==
LOC: ER 16:38 → TELE 03-26 00:15 → TELE-CENTR 03-27 19:27
PROVIDERS: ADMIT Nurse Practitioner; ATTEND Nurse Practitioner
DX: K52.9 Noninfective gastroenteritis and colitis, unspecified (principal); N17.0 Acute kidney failure with tubular necrosis; E87.1 Hypo-osmolality and hyponatremia; E86.0 Dehydration; J44.9 Chronic obstructive pulmonary disease, unspecified; E78.5 Hyperlipidemia, unspecified; N18.2 Chronic kidney disease, stage 2 (mild); I12.9 Hypertensive chronic kidney disease with stage 1 through stage 4 chronic kidney disease, or unspecified chronic kidney disease; R80.9 Proteinuria, unspecified; I25.10 Atherosclerotic heart disease of native coronary artery without angina pectoris; I25.2 Old myocardial infarction; D72.829 Elevated white blood cell count, unspecified; Z68.1 Body mass index [BMI] 19.9 or less, adult
CPT/HCPCS: 36415; 74176; 76705; 76775; 80048; 80053; 80074; 81001; 82270; 82570; 83690; 83735; 84100; 84156; 85025; 86704; 86706; 86708; 86803; 87340; G0378; J2405; J2543; J3490

== ENCOUNTER 2024-10-27 05:40 | Inpatient (IN) | payer MEDICAID, OTHER ==
[~2024-10-27] VITALS: Ht 182.9 cm; Wt 65.8 kg
[~2024-10-27 05:40] MED LIST changes: -AZIT-81 PO; +CIPR-173 PO; +FAMO20TA10 PO; -METH4PAK PO; +METR-344 PO
--- NOTE | 2024-10-27 06:19 | ED.PDOC ---
GI ASSESSMENT HPI Comments 64 y/o M, with PMHX of cancer, COPD, HLD, HTN, [place], and thyroid presents to the ED for CC of blood in stool. 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 Patient relays, having symptoms of abdominal pain accompanied by nausea, vomiting, and diarrhea. Patient comments on, current 03/16 pain. Patient is currently taking Metoprolol for his HTN; has been noncompliant due to symptoms. Patient denies chest pain, shortness of breath, fever, or weakness. No other symptoms or modifying factors at this time. Chief Complaint: GI Bleed Time Seen by MD: 06:16 Primary Care Provider: NONE Reviewed Notes: Nurses Notes, Medications, Allergies Allergies: Coded Allergies: NO KNOWN ALLERGIES (Unverified , 01/25/16) Home Meds Active Scripts Ciprofloxacin Hcl (Cipro) 500 Mg Tab, 1 TAB PO BID, #14 TAB Prov:AJ TURNER NP 03/28/23 Metronidazole (Flagyl) 500 Mg Tab, 1 TAB PO BID, #14 TAB Prov:AJ TURNER NP 03/28/23 Famotidine (PEPCID TABLET) 20 Mg Tb, 1 TAB PO BID, #60 TAB 5 Refills Prov:AJ TURNER NP 03/28/23 Albuterol Sulfate (VENTOLIN MDI) 90 Mcg Ih, 90 MCG IN Q4HPRN PRN, #1 INH Prov:KETAN JOHN MD 08/31/22 Lisinopril (Lisinopril) 10 Mg Tab, 10 MG PO DAILY, #30 TAB 5 Refills Prov:KETAN JOHN MD 08/31/22 Reported Medications Metoprolol Tartrate (Lopressor) 25 Mg Tb, 1 TAB PO BID TAKE WITH FOOD 08/29/22 Atorvastatin Calcium (ATORVASTATIN CALCIUM) 20 Mg Tab, 1 TAB PO DAILY 08/29/22 Aspirin (Aspirin Low Dose) 81 Mg Tab, 1 TAB PO DAILY 08/29/22 Ergocalciferol (Vitamin D) 50,000 Unit Cap, 1 CAP PO QWEEKLY 08/29/22 Information Source: Patient Mode of Arrival: Ambulatory Timing: Hours Duration: Since onset Prehospital treatment: None Quality: None Vomitus: Bright Red Bood Stool: Watery Severity: Moderate Recent: None Recent Hx of: None Pain Location: Diffuse Modifying Factors: Nothing Associated sign and symptoms: Nausea, Vomiting, Diarrhea, Abdominal Pain Past Medical History PAST MEDICAL HISTORY: Cancer, COPD, High Lipids, HTN, [place], Thyroid Surgical History: PTCA Family History Family History: No family hx of Cancer, No family hx of Liver hoda Social History Smoker: Non-Smoker Alcohol: Denies ETOH Use Drugs: Denies Drug Use Lives In: Home Constitutional: denies: chills, diaphoresis, fatigue, fever, malaise, sweats, weakness, others EENTM: denies: blurred vision, double vision, ear bleeding, ear discharge, ear drainage, ear pain, ear ringing, eye pain, eye redness, hearing loss, mouth pain, mouth swelling, nasal discharge, nose bleeding, nose congestion, nose pain, photophobia, tearing, throat pain, throat swelling, voice changes, others Respiratory: denies: cough, hemoptysis, orthopnea, SOB at rest, shortness of breath, SOB with excertion, stridor, wheezing, others Cardiovascular: denies: chest pain, dizzy spells, diaphoresis, Dyspnea on exertion, edema, irregular heart beat, left arm pain, lightheadedness, palpitations, PND, syncope, others Gastrointestinal: reports: abdominal pain, diarrhea, nausea, vomiting; denies: abdomen distended, blood streaked bowels, constipated, dysphagia, difficulty swallowing, hematemesis, melena, poor appetite, poor fluid intake, rectal bleeding, rectal pain, others Genitourinary: denies: burning, dysuria, flank pain, frequency, hematuria, incontinence, penile discharge, penile sore, pain, testicle pain, testicle swelling, urgency, others Neurological: denies: dizziness, fainting, headache, left sided numbness, left sided weakness, numbness, paresthesia, pre-existing deficit, right sided numbness, right sided weakness, seizure, speech problems, tingling, tremors, weakness, others Musculoskeletal: denies: back pain, gout, joint pain, joint swelling, muscle pain, muscle stiffness, neck pain, others Integumetry: denies: bruises, change in color, change in hair/nails, dryness, laceration, lesions, lumps, rash, wounds, others Allergic/Immunocompromised: denies: Difficulty Healing, Frequent Infections, Hives, Itching, others Hematologic/Lymphatic: denies: anemia, blood clots, easy bleeding, easy bruising, swollen glands, others Endocrine: denies: excessive hunger, excessive sweating, excessive thirst, excessive urination, flushing, intolerance to cold, intolerance to heat, unexplained weight gain, unexplained weight loss, others Psychiatric: denies: anxiety, bipolar disorder, depression, hopeless, panic disorder, schizophrenia, sleepless, suicidal, others All Other Systems: Reviewed and Negative Physical Exam General Appearance: Moderate Distress HEENT: Normal ENT Inspection, Pharynx Normal, TMs Normal Neck: Full Range of Motion, Non-Tender, Normal, Normal Inspection Respiratory: Respiratory Distress, Other (Coarse breath sounds) Cardiovascular: No Edema, No JVD, No Murmur, No Gallop, Normal Peripheral Pulses, Regular Rate/Rhythm Breast Exam: Deferred Gastrointestinal: No Organomegaly, Non Tender, No Pulsatile Mass, Normal Bowel Sounds, Soft Genitalia: Deferred Pelvic: Deferred Rectal: Deferred Extremities: No calf tenderness, Normal capillary refill, Normal inspection, Normal range of motion, Non-tender, No pedal edema Musculoskeletal : Apperance: Normal Neurologic: Alert, No Motor Deficits, No Sensory Deficits Cerebellar Function: Normal Reflexes: Normal Skin: Dry, Normal Color, Warm Lymphatic: No Adenopathy Was a procedure done? Was a procedure done?: No GI differential Dx Differential Diagnosis: Constipation, Diverticular disease, Esophagitis, Gastritis/PUD, Gastroenteritis, GI hemorrhage X-Ray, Labs, Meds, VS Vital Signs Date Time Temp Pulse Resp B/P (MAP) Pulse Ox O2 Delivery O2 Flow Rate FiO2 10/27/24 07:20 18 92 Room Air* 0 21 10/27/24 06:31 194/118 10/27/24 06:16 92 10/27/24 05:59 98.0 95 16 194/118 (143) 93 Lab Test 10/27/24 06:27 Range/Units White Blood Count 17.9 H 4.4-10.8 10^3/uL Red Blood Count 5.85 4.5-5.90 10^6/uL Hemoglobin 16.4 13.5-17.5 g/dL Hematocrit 50.7 41.0-53.0 % Mean Corpuscular Volume 86.7 80.0-100.0 fL Mean Corpuscular Hemoglobin 28.0 28.0-32.0 pg Mean Corpuscular Hemoglobin Concent 32.3 32.0-36.0 g/dL Red Cell Distribution Width 14.0 11.8-14.3 % Platelet Count 296 140-450 10^3/uL Mean Platelet Volume 8.8 6.9-10.8 fL Neutrophils (%) (Auto) 86.0 H 37.0-80.0 % Lymphocytes (%) (Auto) 3.4 L 10.0-50.0 % Monocytes (%) (Auto) 9.9 0.0-12.0 % Eosinophils (%) (Auto) 0.1 0.0-7.0 % Basophils (%) (Auto) 0.6 0.0-2.0 % Neutrophils # (Auto) 15.4 H 1.6-8.6 10 ^3/uL Lymphocytes # (Auto) 0.6 0.4-5.4 10 ^3/uL Monocytes # (Auto) 1.8 H 0-1.3 10 ^3/uL Eosinophils # (Auto) 0 0-0.8 10 ^3/uL Basophils # (Auto) 0.1 0-0.2 10 ^3/uL Nucleated Red Blood Cells 0.1 % Sodium Level 131 L 136-145 mmol/L Potassium Level 4.1 3.5-5.1 mmol/L Chloride Level 95 L 98-107 mmol/L Carbon Dioxide Level 24 20-31 mmol/L Anion Gap 12 5-15 Blood Urea Nitrogen 56 H 9-23 mg/dL Creatinine 2.31 H 0.700-1.30 mg/dL Glomerular Filtration Rate Calc 31 >90 mL/min BUN/Creatinine Ratio 24.2 H 10.0-20.0 Serum Glucose 134 H 74-106 mg/dL Calcium Level 10.1 8.7-10.4 mg/dL Troponin I High Sensitivity 7 </=54 ng/L Current Medications Medications (Trade) Dose Ordered Sig/Ronn Route Start Time Stop Time Status Last Admin Amlodipine Besylate (Norvasc Tablet) 10 mg ONCE ONCE PO 10/27/24 06:30 10/27/24 06:31 DC 10/27/24 06:31 Albuterol (Ventolin Medneb) 5 mg ONCE ONCE NEB 10/27/24 07:00 10/27/24 07:01 DC 10/27/24 07:24 Ipratropium [place] (Atrovent Medneb) 0.5 mg ONCE ONCE NEB 10/27/24 07:00 10/27/24 07:01 DC 10/27/24 07:[address] [address] Ph: [phone] DIAGNOSTIC IMAGING Diagnostic Imaging Report : [id number] Signed PATIENT: MATILDE PANDYA ACCT: [id number] UNIT: [id number] : 1960 LOC: ER ROOM / BED: / AGE / SEX: 64 / M ADM STATUS: REG ER SERVICE 8 ORDERING PHYSICIAN: ROSAS SCHMIDT MD PROCEDURE(s): ABPL - CT AB PEL WO CON-NO ORAL OR IV REASON: colitis ORDER NUMBER(s): [id number], ACCESSION NUMBER(s): [id number] Exam: CT CT AB PEL WO CON-NO ORAL OR IV History: colitis Comparison Study: None available at time of dictation. TECHNIQUE: Multidetector CT of the abdomen and pelvis was performed from lung bases to ischial tuberosities. Imaging was performed without IV contrast using axial images. Coronal and sagittal reformats were obtained from the axial data set by the technologist. Radiation Dose Information: CT Dose: CTDI volume is 5.71 mGy. Dose-length product is 260.07 mGy*cm FINDINGS: Evaluation of solid organs is limited due to lack of intravenous contrast use. Findings: Lung Bases: Emphysema in the lung bases. Patchy opacities in the right lung base. Normal heart size. No pleural or pericardial effusion. Liver: The liver is normal in size. No focal lesions. Gallbladder and Biliary Tree: Unremarkable Spleen: Unremarkable Pancreas: The pancreas is grossly normal in appearance. Adrenal Glands: Unremarkable Kidneys: The kidneys demonstrate no hydronephrosis or intrarenal calculi. There is a cyst in the upper pole of the left kidney measuring 1.2 cm. GI Tract: The stomach is distended. The small bowel is normal in caliber. Mild wall thickening of the descending colon, in part attributed to underdistention. Scattered stool throughout the rest of the colon. Normal caliber appendix. Peritoneal cavity: No pneumoperitoneum. No ascites. Lymphadenopathy: No mesenteric, retroperitoneal or periportal lymphadenopathy. Abdominal Wall and Mesentery: Unremarkable. Vasculature: 3.8 cm infrarenal abdominal aortic aneurysm. This is not well evaluated without intravenous contrast but is similar to prior CT from 03/25/2023. Scattered atherosclerotic calcifications in the abdominal aorta and branches. There is a right common iliac artery aneurysm measuring 2.0 cm. Pelvic Organs: Unremarkable Urinary Bladder: Grossly unremarkable for degree of distention. Musculoskeletal: No aggressive focal bony lesions, acute fractures or dislocation. Soft tissues: Unremarkable IMPRESSION: 1. Findings which may reflect colitis of the descending colon. 2. 3.8 cm infrarenal abdominal aortic aneurysm. 2.0 cm right common iliac artery aneurysm. These findings are similar to a prior unenhanced CT from 2022. Radiation optimization: All CT scans at this facility use at least one of these dose optimization techniques: automated exposure control mA and/or kV adjustment per patient size (includes targeted exams where dose is matched to clinical indication) or iterative reconstruction. ATED BY: TATIANNA CANO MD DICTATED DATE/TIME: 10/27/24715 SIGNED BY: TATIANNA CANO MD SIGNED DATE/TIME: 10/27/24715 CC: Patient alert. Complaining of blood in his stool. Bright red blood. Head pressure elevated. Was given amlodipine. Coarse breath sound. He is a smoker. Counseled patient on effects of smoking cigarettes for 15 minutes. COPD exacerbation. Was given steroid. Was given breathing treatment. He is not taking his medication. Explained to the patient. Continue cardiac monitoring. Time of 1ST Reevaluation: 06:36 Reevaluation 1ST: Unchanged Patient Education/Counseling: Diagnosis, Treatment Family Education/Counseling: No Family Present Additional Information The following tests were ordered, and results were reviewed by me: CBC, CMP, TROPONIN, CT ABD PEL I reviewed and agreed with the following test results read by other providers: CT ABD PEL I discussed treatment and results with medical personnel and: PATIENT Departure 1 Departure Time of Disposition: 06:54 Impression: Primary Impression: Hypertensive emergency Additional Impression: COPD exacerbation Disposition: ADMITTED INPATIENT Admit to: Med Surg Condition: Guarded Critical Care Note Critical Care Time?: Yes (90 min-critical care time only) Stability Stability form required: No Heart Score Heart Score: Heart Score Response (Comments) Value History Slightly Suspicious 0 EKG Normal 0 Age 45-64 1 Risk Factors >3 or Hx ASHD 2 Troponin Normal limit 0 Total 3 I personally scribed for ROSAS SCHMIDT MD ([email or web address]) on 10/27/24 at 06:19. Electronically submitted by Billie Dempsey ([employer]). I personally scribed for ROSAS SCHMIDT MD ([email or web address]) on 10/27/24 at 06:34. Electronically submitted by Billie Dempsey ([email or web address]). I personally scribed for ROSAS SCHMIDT MD ([email or web address]) on 10/27/24 at 07:00. Electronically submitted by Billie Dempsey ([employer]). I personally scribed for ROSAS SCHMIDT MD ([email or web address]) on 10/27/24 at 07:02. Electronically submitted by Billie Dempsey ([employer]). I personally scribed for ROSAS SCHMIDT MD ([email or web address]) on 10/27/24 at 07:52. Electronically submitted by Billie Dempsey ([employer]). ROSAS SCHMIDT MD Oct 27, 2024 06:19
[2024-10-27] MEDS: amLODIPine BESYLATE 5 MG TAB PO ONE ×2 (06:31→14:02)
[2024-10-27 07:00] LABS: Basophils # (auto) 0.1 10 ^3/uL (0-0.2); Basophils % (auto) 0.6 % (0.0-2.0); Eosinophils # (auto) 0 10 ^3/uL (0-0.8); Eosinophils % (auto) 0.1 % (0.0-7.0); Hematocrit 50.7 % (41.0-53.0); Hemoglobin 16.4 g/dL (13.5-17.5); Lymphocytes # (auto) 0.6 10 ^3/uL (0.4-5.4); Lymphocytes % (auto) 3.4 % (10.0-50.0); Mean Corpuscular Hgb Conc. 32.3 g/dL (32.0-36.0); Mean Corpuscular Volume 86.7 fL (80.0-100.0); Monocytes # (auto) 1.8 10 ^3/uL (0-1.3); Monocytes % (auto) 9.9 % (0.0-12.0); Neutrophils # (auto) 15.4 10 ^3/uL (1.6-8.6); Nucleated Red Blood Cells % 0.1 %; Platelet Count (auto) 296 10^3/uL (140-450); Red Blood Cells 5.85 10^6/uL (4.5-5.90); White Blood Cell 17.9 10^3/uL (4.4-10.8)
--- NOTE | 2024-10-27 07:19 | DVH ---
Exam: CT CT AB PEL WO CON-NO ORAL OR IV History: colitis Comparison Study: None available at time of dictation. TECHNIQUE: Multidetector CT of the abdomen and pelvis was performed from lung bases to ischial tubero sities. Imaging was performed without IV contrast using axial images. Coronal and sagittal reformats were obtained from the axial data set by the technologist. Radiation Dose Information: CT Dose: CTDI volume is 5.71 mGy. Dose-length product is 260.07 mGy*cm FINDINGS: Evaluation of solid organs is limited due to lack of intravenous contrast use. Findings: Lung Bases: Emphysema in the lung bases. Patchy opacities in the right lung base. Normal heart size . No pleural or pericardial effusion. Liver: The liver is normal in size. No focal lesions. Gallbladder and Biliary Tree: Unremarkable Spleen: Unremarkable Pancreas: The pancreas is grossly normal in appearance. Adrenal Glands: Unremarkable Kidneys: The kidneys demonstrate no hydronephrosis or intrarenal calculi. There is a cyst in the uppe r pole of the left kidney measuring 1.2 cm. GI Tract: The stomach is distended. The small bowel is normal in caliber. Mild wall thickening of the descending colon, in part attributed to underdistention. Scattered stool throughout the rest of the colon. Normal caliber appendix. Peritoneal cavity: No pneumoperitoneum. No ascites. Lymphadenopathy: No mesenteric, retroperitoneal or periportal lymphadenopathy. Abdominal Wall and Mesentery: Unremarkable. Vasculature: 3.8 cm infrarenal abdominal aortic aneurysm. This is not well evaluated without intraven ous contrast but is similar to prior CT from 03/25/2023. Scattered atherosclerotic calcifications in the abdominal aorta and branches. There is a right common iliac artery aneurysm measuring 2.0 cm. Pelvic Organs: Unremarkable Urinary Bladder: Grossly unremarkable for degree of distention. Musculoskeletal: No aggressive focal bony lesions, acute fractures or dislocation. Soft tissues: Unremarkable IMPRESSION: 1. Findings which may reflect colitis of the descending colon. 2. 3.8 cm infrarenal abdominal aortic aneurysm. 2.0 cm right common iliac artery aneurysm. These fin dings are similar to a prior unenhanced CT from 2022. Radiation optimization: All CT scans at this facility use at least one of these dose optimization bert hniques: automated exposure control mA and/or kV adjustment per patient size (includes targeted exam s where dose is matched to clinical indication) or iterative reconstruction.
[2024-10-27] MEDS: ALBUTEROL SULF 2.5 MG/0.5ML(0.5%) NEB SOLN NEB ONE (07:24)
[2024-10-27] MEDS: IPRATROPIUM BROM 0.5 MG/2.5ML INH SOL NEB ONE (07:25)
[2024-10-27 07:34] LABS: Potassium 4.1 mmol/L (3.5-5.1)
[2024-10-27 07:35] LABS: Anion Gap 12 (5-15); Carbon Dioxide 24 mmol/L (20-31)
[2024-10-27 07:36] LABS: Calcium 10.1 mg/dL (8.7-10.4)
[2024-10-27 07:40] LABS: BUN/Creatinine Ratio 24.2 (10.0-20.0)
[2024-10-27 07:43] LABS: Blood Urea Nitrogen 56 mg/dL (9-23); Chloride 95 mmol/L (98-107); Glucose 134 mg/dL (74-106); Sodium 131 mmol/L (136-145)
[2024-10-27] MEDS ORDERED: VANCOMYCIN PER PHARMACY 0 MG IV SCH (08:00)
[2024-10-27 08:15] VITALS: PULSE 98; RESP 18; O2SAT 93
[2024-10-27] MEDS ORDERED: ONDANSETRON HCL 4 MG/2 ML VIAL IV PRN (08:15)
[2024-10-27] MEDS ORDERED: MORPHINE SULFATE INJ 2 MG/ml SYRG IV PRN (08:15)
[2024-10-27] MEDS ORDERED: HYDROcodone-ACET 5/325MG TAB PO PRN (08:15)
[2024-10-27] MEDS ORDERED: ACETAMINOPHEN 325 MG TAB PO PRN (08:15)
[2024-10-27] MEDS: methylPREDNISolone SOD SUCC 125 MG/2 ML VL IV ONE (08:28)
[2024-10-27] MEDS: cefTRIAXone 1GM/50ML D5W 50 ML IV ONE (08:28)
[2024-10-27 08:41] LABS: INR 0.99 (0.9-1.15); Prothrombin Time 10.5 sec (9.3-11.8)
[2024-10-27] MEDS: metroNIDAZOLE 500MG/100ML 100 ML IV ONE (08:50)
--- NOTE | 2024-10-27 08:50 | DVHHP2 ---
History of Present Illness Reason for Visit: Abdominal pain History of Present Illness Pio Collier is a 64-year-old male with past medical history of hypertension, aortic dissection, PTCA x1 in 2010 at [facility], and right [facility] who presents to the ED with abdominal pain, diarrhea, vomiting, fever, bloody stool, shortness of breath x2 days. Patient states that the his abdominal pain is 7/10 constant and aching. Patient reported that he had 2 bloody stools yesterday but no complaints of vomiting with blood. Patient also reports that last week he had gone to [facility] and was transferred to [place] for possible surgery for his aortic dissection but the surgery never happened. Patient's blood pressure noted in the ED systolics of 190s and ED ordered nicardipine drip. Patient denies any chest pain, lightheadedness, weakness, dizziness, recent sick contacts, and recent ingestion of spoiled food. Cardiovascular: HTN Past Medical History Aortic dissection Past Surgical History: Other (PTCA x1 and right bunion surgery) Family History: Cancer, Other (Dad with PA and mom with breast cancer) Smoke: No ALCOHOL: none Drugs: Marijuana Lives: Roommate Domestic Violence: Neg Review of Systems Constitutional: Yes: Fever; No: Chills, Sweats, Weakness, Malaise, Other Eyes: No: Pain, Vision change, Conjunctivae inflammation, Eyelid inflammation, Other, Redness ENT: No: Ear pain, Ear discharge, Nose pain, Nose discharge, Nose congestion, Mouth pain, Mouth swelling, Throat pain, Throat swelling, Other Respiratory: Shortness of breath; No: Cough, Dry, SOB with excertion, Wheezing, Hemoptysis, Pleuritic Pain, Sputum, Wheezing, Other Cardiovascular: No: Chest Pain, Palpitations, Orthopnea, Paroxysmal Noc. Dyspnea, Edema, Lt Headedness, Other Gastrointestinal: Vomiting, Abdominal Pain, Diarrhea, Melena; No: Nausea, Constipation, Hematochezia, Other Genitourinary: No Dysuria, No Frequency, No Incontinence, No Hematuria, No Retention, No Other Musculoskeletal: No: other, neck pain, shoulder pain, arm pain, back pain, hand pain, leg pain, foot pain Skin: No: Rash, Lesions, Jaundice, Bruising, Other Neurological: No: Weakness, Numbness, Incoordination, Change in speech, Confusion, Seizures, Other Allergies: Coded Allergies: NO KNOWN ALLERGIES (Unverified , 01/25/16) Medications Current Medications Medications Dose Ordered Sig/Ronn Route Start Time Stop Time Status Last Admin Dose Admin Nicardipine HCl 250 ml @ 50 mls/hr Q5H IV 10/27/24 06:30 Vancomycin HCl 0 ml @ 0 mls/hr UD IV 10/27/24 08:00 UNV Piperacillin Sod/ Tazobactam Sod 100 ml @ 25 mls/hr Q8HR IV 10/27/24 14:00 UNV Exam Vital Signs Vital Signs Date Time Temp Pulse Resp B/P (MAP) Pulse Ox O2 Delivery O2 Flow Rate FiO2 10/27/24 07:20 18 92 Room Air* 0 21 10/27/24 06:31 194/118 10/27/24 06:16 92 10/27/24 05:59 98.0 General Appearance: Alert, Oriented X3, Cooperative, No acute distress HEENT: Atraumatic, PERRLA, EOMI, Mucous membr. moist/pink Respiratory: Clear to auscultation, Normal air movement Cardiovascular: Regular rate, Normal S2 Abdominal: Soft, No hepatospenomegaly, No masses Extremities: No clubbing, No cyanosis, No edema, Normal pulses, No tenderness/swelling Skin: No significant lesion Neuro: Normal gait, Normal speech, Strength at 5/5 X4 ext, Normal tone, Sensation intact Psych/Mental Status: Mental status NL, Mood NL Labs/Xrays Labs Test 10/27/24 06:27 Range/Units White Blood Count 17.9 H 4.4-10.8 10^3/uL Red Blood Count 5.85 4.5-5.90 10^6/uL Hemoglobin 16.4 13.5-17.5 g/dL Hematocrit 50.7 41.0-53.0 % Mean Corpuscular Volume 86.7 80.0-100.0 fL Mean Corpuscular Hemoglobin 28.0 28.0-32.0 pg Mean Corpuscular Hemoglobin Concent 32.3 32.0-36.0 g/dL Red Cell Distribution Width 14.0 11.8-14.3 % Platelet Count 296 140-450 10^3/uL Mean Platelet Volume 8.8 6.9-10.8 fL Neutrophils (%) (Auto) 86.0 H 37.0-80.0 % Lymphocytes (%) (Auto) 3.4 L 10.0-50.0 % Monocytes (%) (Auto) 9.9 0.0-12.0 % Eosinophils (%) (Auto) 0.1 0.0-7.0 % Basophils (%) (Auto) 0.6 0.0-2.0 % Neutrophils # (Auto) 15.4 H 1.6-8.6 10 ^3/uL Lymphocytes # (Auto) 0.6 0.4-5.4 10 ^3/uL Monocytes # (Auto) 1.8 H 0-1.3 10 ^3/uL Eosinophils # (Auto) 0 0-0.8 10 ^3/uL Basophils # (Auto) 0.1 0-0.2 10 ^3/uL Nucleated Red Blood Cells 0.1 % Sodium Level 131 L 136-145 mmol/L Potassium Level 4.1 3.5-5.1 mmol/L Chloride Level 95 L 98-107 mmol/L Carbon Dioxide Level 24 20-31 mmol/L Anion Gap 12 5-15 Blood Urea Nitrogen 56 H 9-23 mg/dL Creatinine 2.31 H 0.700-1.30 mg/dL Glomerular Filtration Rate Calc 31 >90 mL/min BUN/Creatinine Ratio 24.2 H 10.0-20.0 Serum Glucose 134 H 74-106 mg/dL Calcium Level 10.1 8.7-10.4 mg/dL Troponin I High Sensitivity 7 </=54 ng/L Exam: CT CT AB PEL WO CON-NO ORAL OR IV History: colitis Comparison Study: None available at time of dictation. TECHNIQUE: Multidetector CT of the abdomen and pelvis was performed from lung bases to ischial tuberosities. Imaging was performed without IV contrast using axial images. Coronal and sagittal reformats were obtained from the axial data set by the technologist. Radiation Dose Information: CT Dose: CTDI volume is 5.71 mGy. Dose-length product is 260.07 mGy*cm FINDINGS: Evaluation of solid organs is limited due to lack of intravenous contrast use. Findings: Lung Bases: Emphysema in the lung bases. Patchy opacities in the right lung base. Normal heart size. No pleural or pericardial effusion. Liver: The liver is normal in size. No focal lesions. Gallbladder and Biliary Tree: Unremarkable Spleen: Unremarkable Pancreas: The pancreas is grossly normal in appearance. Adrenal Glands: Unremarkable Kidneys: The kidneys demonstrate no hydronephrosis or intrarenal calculi. There is a cyst in the upper pole of the left kidney measuring 1.2 cm. GI Tract: The stomach is distended. The small bowel is normal in caliber. Mild wall thickening of the descending colon, in part attributed to underdistention. Scattered stool throughout the rest of the colon. Normal caliber appendix. Peritoneal cavity: No pneumoperitoneum. No ascites. Lymphadenopathy: No mesenteric, retroperitoneal or periportal lymphadenopathy. Abdominal Wall and Mesentery: Unremarkable. Vasculature: 3.8 cm infrarenal abdominal aortic aneurysm. This is not well evaluated without intravenous contrast but is similar to prior CT from 03/25/2023. Scattered atherosclerotic calcifications in the abdominal aorta and branches. There is a right common iliac artery aneurysm measuring 2.0 cm. Pelvic Organs: Unremarkable Urinary Bladder: Grossly unremarkable for degree of distention. Musculoskeletal: No aggressive focal bony lesions, acute fractures or dislocation. Soft tissues: Unremarkable IMPRESSION: 1. Findings which may reflect colitis of the descending colon. 2. 3.8 cm infrarenal abdominal aortic aneurysm. 2.0 cm right common iliac artery aneurysm. These findings are similar to a prior unenhanced CT from 2022. Assessment/Plan Assessment/Plan Assessment/Plan: Intractable abdominal pain possibly colitis versus rule out GI bleed Leukocytosis likely due to colitis 3.8 cm infrarenal abdominal aortic aneurysm 2.0 cm right common iliac artery aneurysm Labs Respiratory treatments given ED Steroids given ED Nicardipine drip ordered in ED Antihypertensive Troponin ct a/p noted Antiemetics Pain management A.m. labs UA UDS IV fluids IV antibiotics-vancomycin +Zosyn IV antibiotics-ceftriaxone + Flagyl given ED GI consult Vascular consult History of hypertension Continue home medications History of aortic dissection Vascular consult History of PTCA x1 Monitor Substance abuse Counseled patient on cessation of substance use FEN/PPX NPO IV fluids DVT prophylaxis not indicated patient ambulating PUD prophylaxis- Protonix Admit to med surge-nicardipine drip not started Home medications reconciled Discussed plan of care with patient and nurse Plan discussed with: Patient My Orders Orders - DAVID BRICENO Procedure Category Date Status Time Consult CONS 10/27/24 Transmitted Vascular/Endovascular 07:55 Prothrombin Time W/ LAB 10/27/24 In Process INR 07:57 Vancomycin Per [facility] 10/27/24 Logged Pharmacy 08:00 Piperacillin-Tazob [facility] 10/27/24 Logged 3.375gm (Zosyn 3.375g 14:00 Piperacillin-Tazo [facility] 10/27/24 Logged 4.5gm (Zosyn 4.5gm/100 08:00 Date of Service: Oct 27, 2024 Billing Provider: DAVID BRICENO Common Visit Codes: [id number] INP/OBS CARE (HIGH) DAVID BRICENO Oct 27, 2024 08:50
[2024-10-27] MEDS: cloNIDine HCL 0.1 MG TAB PO ONE (08:51)
[2024-10-27] MEDS: SODIUM CHLORIDE 0.9% 1,000 ML IV SCH (08:55)
[2024-10-27] MEDS: PIPERACILLIN-TAZO 4.5GM 100 ML IV ONE (09:55)
[2024-10-27] MEDS: VANCOMYCIN 1.25GM/250ML 250 ML IV ONE (11:00)
[2024-10-27 11:33] LABS: Urine Bacteria FEW /hpf (None Seen); Urine Blood TRACE /uL (Negative); Urine Clarity Clear (Clear); Urine Color Yellow (Yellow); Urine Hyaline Cast FEW /lpf (0 - 2); Urine Protein, UAD 1+ (Negative); Urine Specific Gravity 1.019 (1.001-1.035); Urine Squamous Epithelial Cell FEW /hpf (<5); Urine Urobilinogen Normal (Negative); Urine WBC 1 /HPF (0-3); Urine pH 5.5 (5.0-9.0)
[2024-10-27 11:42] LABS: Amphetamine Screen, Urine Pos (NEGATIVE); Barbiturate Scree,Urine Neg (NEGATIVE); Benzodiazephine Screen, Urine Neg (NEGATIVE); Cannabinoid Screen, Urine Pos (NEGATIVE); Cocaine Screen, Urine Neg (NEGATIVE); Opiate Scree,Urine Neg (NEGATIVE); Phencyclidine Screen, Urine Neg (NEGATIVE)
[2024-10-27 12:39] VITALS: BP 109/74; PULSE 81; RESP 16; TEMP 97.8; O2SAT 93
[2024-10-27 12:47] VITALS: BP 109/74; PULSE 81; RESP 20; TEMP 97.8; O2SAT 93
--- NOTE | 2024-10-27 13:45 | DVH ---
XY CHEST TWO VIEWS ROUTINE CLINICAL HISTORY: SOB COMPARISON: None TECHNIQUE: Frontal and lateral view of the chest was obtained FINDINGS: Lines and Tubes: None Lungs: No focal consolidation. Pleura: No effusion. No pneumothorax. Cardiomediastinal contours: Unremarkable Bones: No acute osseous abnormality. IMPRESSION: No acute cardiopulmonary disease.
[2024-10-27] MEDS: PIPERACILLIN-TAZOB 3.375GM 100 ML IV SCH (14:02)
--- NOTE | 2024-10-27 14:03 | DVHPN2 ---
Assessment/Plan Assessment/Plan Progress note 64 yo M with CAD s/p JUAN F, AAA, dissection?, CKD, admitted for hypertensive emergency, started on cardene drip, now controlled. CT showed stable AAA, colitis. Patient also reported hematochezia for 2 days, and loose stools 1-2x a day for 5 days. Also have nausea and dry heaves, denies vomiting. Patient stated he is hungry now. CXR showed lung hyperinflation consistent with COPD. History of methamphetamine use. Prior admission with hematochezia 2022 seen by GI. Never had colonoscopy, but reported he had UC in the past. Reported weight loss although doubt having good nutritional input. Physical exam Alert oriented x4 s1 s2 rrr no murmur clear breath sounds, no wheeze abdomen soft nontender no LE edema SANDI deferred, patient in holding labs imaging reviewed assessment and plan Hematochezia Protein calorie malnutrition COPD? not in exacerbation Hypertensive heart disease AAA 3.8cm +- dissection? CAD s/p JUAN F on aspirin Leukocytosis CKD stage 3b FOBT GI consult for possible colonoscopy when able SANDI when patient have room IV hydration resume diet as tolerated nutrition consult BP control with oral meds Defer IV contrast use for now Patient follows with vascular OP empiric ceft and flagyl resume home meds, hold asa diet clear liquid dvt ppx hold Plan discussed with: Patient My Orders Orders - HEAVENLY MARIE MD Procedure Category Date Status Time Chest Two Views XY 10/27/24 Resulted Routine 12:54 Amlodipine Tablet PHA 10/28/24 In Process (Norvasc Tablet) 10:00 Amlodipine Tablet PHA 10/27/24 In Process (Norvasc Tablet) 13:00 Phosphorus LAB 10/28/24 Verified 04:00 Date of Service: Oct 27, 2024 Billing Provider: HEAVENLY MARIE MD Common Visit Codes: [id number] INP/OBS CARE(HIGH) HEAVENLY MARIE MD Oct 27, 2024 14:03
[2024-10-27] MEDS: SODIUM CHLORIDE 0.9% 1,000 ML IV ONE (15:07)
[2024-10-27 17:00] VITALS: BP 111/65; PULSE 80; RESP 18; TEMP 97.4; O2SAT 91
[2024-10-27] MEDS: metroNIDAZOLE 500MG/100ML 100 ML IV SCH (17:13)
[2024-10-27 21:00] VITALS: BP 114/66; PULSE 66; RESP 18; TEMP 98; O2SAT 90
[2024-10-28] VITALS (7 sets, daily range): BP systolic 102–133; BP diastolic 58–71; PULSE 70–78; RESP 18; TEMP 96.9–98.7; O2SAT 94–96
[2024-10-28 07:02] LABS: Basophils # (auto) 0 10 ^3/uL (0-0.2); Eosinophils # (auto) 0 10 ^3/uL (0-0.8); Hematocrit 42.7 % (41.0-53.0); Hemoglobin 14.2 g/dL (13.5-17.5); Lymphocytes # (auto) 0.4 10 ^3/uL (0.4-5.4); Lymphocytes % (auto) 2.1 % (10.0-50.0); Mean Corpuscular Hemoglobin 28.5 pg (28.0-32.0); Mean Corpuscular Hgb Conc. 33.3 g/dL (32.0-36.0); Mean Corpuscular Volume 85.4 fL (80.0-100.0); Monocytes # (auto) 1.1 10 ^3/uL (0-1.3); Monocytes % (auto) 5.8 % (0.0-12.0); Neutrophils # (auto) 17.6 10 ^3/uL (1.6-8.6); Neutrophils % (auto) 92.1 % (37.0-80.0); Platelet Count (auto) 267 10^3/uL (140-450); Red Cell Distribution Width 14.1 % (11.8-14.3); White Blood Cell 19.1 10^3/uL (4.4-10.8)
[2024-10-28 07:24] LABS: Alanine Aminotransferase 24 U/L (7-40); Alkaline Phosphatase 95 U/L (46-116); Anion Gap 11 (5-15); Calcium 9.6 mg/dL (8.7-10.4); Carbon Dioxide 22 mmol/L (20-31); Chloride 102 mmol/L (98-107); Potassium 3.9 mmol/L (3.5-5.1)
[2024-10-28 07:26] LABS: Albumin 4.1 g/dL (3.2-4.8); Aspartate Aminotransferase 20 U/L (13-40); Bilirubin, Total 0.5 mg/dL (0.2-1.0); Blood Urea Nitrogen 40 mg/dL (9-23); Glucose 119 mg/dL (74-106); Sodium 135 mmol/L (136-145); Total Protein 6.4 g/dL (5.7-8.2)
[2024-10-28] MEDS: cefTRIAXone 1GM/50ML D5W 50 ML IV SCH (09:36)
[2024-10-28] MEDS: amLODIPine BESYLATE 5 MG TAB PO SCH (09:37)
[2024-10-28] MEDS ORDERED: LEVO500T91 PO (14:29)
[2024-10-28] MEDS ORDERED: METR-344 PO (14:29)
--- NOTE | 2024-10-28 14:31 | DVHDS2 ---
Discharge Summary Date of Admission Oct 27, 2024 at 08:12 Date of Discharge: Oct 28, 2024 Labs/Diagnostic Data: Laboratory Results Test 10/28/24 05:31 10/27/24 10:46 10/27/24 10:31 10/27/24 06:27 White Blood Count 19.1 10^3/uL (4.4-10.8) Red Blood Count 5.00 10^6/uL (4.5-5.90) Hemoglobin 14.2 g/dL (13.5-17.5) Hematocrit 42.7 % (41.0-53.0) Mean Corpuscular Volume 85.4 fL (80.0-100.0) Mean Corpuscular Hemoglobin 28.5 pg (28.0-32.0) Mean Corpuscular Hemoglobin Concent 33.3 g/dL (32.0-36.0) Red Cell Distribution Width 14.1 % (11.8-14.3) Platelet Count 267 10^3/uL (140-450) Mean Platelet Volume 8.5 fL (6.9-10.8) Neutrophils (%) (Auto) 92.1 % (37.0-80.0) Lymphocytes (%) (Auto) 2.1 % (10.0-50.0) Monocytes (%) (Auto) 5.8 % (0.0-12.0) Eosinophils (%) (Auto) 0.0 % (0.0-7.0) Basophils (%) (Auto) 0.0 % (0.0-2.0) Neutrophils # (Auto) 17.6 10 ^3/uL (1.6-8.6) Lymphocytes # (Auto) 0.4 10 ^3/uL (0.4-5.4) Monocytes # (Auto) 1.1 10 ^3/uL (0-1.3) Eosinophils # (Auto) 0 10 ^3/uL (0-0.8) Basophils # (Auto) 0 10 ^3/uL (0-0.2) Nucleated Red Blood Cells 0.0 % Sodium Level 135 mmol/L (136-145) Potassium Level 3.9 mmol/L (3.5-5.1) Chloride Level 102 mmol/L (98-107) Carbon Dioxide Level 22 mmol/L (20-31) Anion Gap 11 (5-15) Blood Urea Nitrogen 40 mg/dL (9-23) Creatinine 1.54 mg/dL (0.700-1.30) Glomerular Filtration Rate Calc 50 mL/min (>90) BUN/Creatinine Ratio 26.0 (10.0-20.0) Serum Glucose 119 mg/dL (74-106) Calcium Level 9.6 mg/dL (8.7-10.4) Phosphorus Level 3.0 mg/dL (2.4-5.1) Total Bilirubin 0.5 mg/dL (0.2-1.0) Aspartate Amino Transferase (AST) 20 U/L (13-40) Alanine Aminotransferase (ALT) 24 U/L (7-40) Alkaline Phosphatase 95 U/L (46-116) Total Protein 6.4 g/dL (5.7-8.2) Albumin 4.1 g/dL (3.2-4.8) Urine Color Yellow (Yellow) Urine Clarity Clear (Clear) Urine pH 5.5 (5.0-9.0) Urine Specific [place] 1.019 (1.001-1.035) Urine Protein 1+ (Negative) Urine Ketones Negative (Negative) Urine Blood Trace /uL (Negative) Urine Nitrite Negative (Negative) Urine Bilirubin Negative (Negative) Urine Urobilinogen Normal mg/dL (Negative) Urine Leukocyte Esterase Negative /uL (Negative) Urine RBC None seen /hpf (0 - 3) Urine Microscopic WBC 1 /HPF (0-3) Urine Squamous Epithelial Cells Few /hpf (<5) Urine Bacteria Few /hpf (None Seen) Urine Hyaline Casts Few /lpf (0 - 2) Urine Glucose Normal mg/dL (Normal) Urine Opiates Screen Neg (NEGATIVE) Urine Fentanyl Screen Neg (NEGATIVE) Urine Barbiturates Screen Neg (NEGATIVE) Urine Phencyclidine Screen Neg (NEGATIVE) Urine Amphetamines Screen Pos (NEGATIVE) Urine Benzodiazepines Screen Neg (NEGATIVE) Urine Cocaine Screen Neg (NEGATIVE) Urine Cannabinoids Screen Pos (NEGATIVE) Prothrombin Time 10.5 sec (9.3-11.8) Prothrombin Time INR 0.99 (0.9-1.15) Troponin I High Sensitivity 7 ng/L (</=54) Other Laboratory Tests 10/28/24 05:31 Brief Hx & Hospital Course: 64 yo M with CAD s/p JUAN F, AAA, dissection?, CKD, admitted for hypertensive emergency, started on cardene drip, now controlled. CT showed stable AAA, colitis. Patient also reported hematochezia for 2 days, and loose stools 1-2x a day for 5 days. Also have nausea and dry heaves, denies vomiting. Patient stated he is hungry now. CXR showed lung hyperinflation consistent with COPD. History of methamphetamine use. Prior admission with hematochezia 2022 seen by GI. Never had colonoscopy, but reported he had UC in the past. Reported weight loss although doubt having good nutritional input. Reported today symptoms resolved. Patient had prior admission for same. Stable to discharge home with OP colonoscopy. c/w oral abx at home Condition at Discharge: Good Final Diagnosis/Problems List Hematochezia? likely bacterial enterocolitis Protein calorie malnutrition COPD? not in exacerbation Hypertensive heart disease AAA 3.8cm no dissectin CAD s/p JUAN F on aspirin Leukocytosis CKD stage 3b Discharge Disposition: Home Discharge Instruct/Medications Diet: Cardiac 2g Na,low cholest Activity: No Restrictions, As Tolerated Follow Up/Referral: GI for OP colonoscopy Medications: levo and flagyl 39 Discharge Statement: "Patient was advised to return to the ER or call 911 if any headaches, dizziness, shortness of breath, chest pain, abdominal pain, bleeding, fevers, or worsening of medical condition. Patient was counseled about treatment plan, medications, possible side effects, patientverbalized understanding. All questions were answered to the best of my ability. This discharge took greater then 30 minutes in planning, reviewing documentation, counseling the patient, and discussing with other team members." ASSESSMENT ASSESSMENT Assessment bact enteritis +- gi bleed? UC? Date of Service: Oct 28, 2024 Billing Provider: HEAVENLY MARIE MD Common Visit Codes: [id number]-MSP/OBS DISCH DAY >30min HEAVENLY MARIE MD Oct 28, 2024 14:31
--- NOTE | 2024-10-31 14:39 | ECG ---
[facility] Test Date: 2024-10-27 Test Time: 06:16:38 Pat Name: MATILDE PANDYA Department: ED Room: 0215 B Gender: M Social Work Manager: SHUBHAM : 1960 Requested By: ROSAS SCHMIDT Order Number: [id number] Reading MD: Gonzalez Iverson Measurements Intervals [place] Rate: 92 P: 80 MS: 136 QRS: 29 QRSD: 89 T: 71 QT: 369 QTc: 457 Interpretive Statements Sinus rhythm Atrial premature complex JAHAIRA, consider biatrial enlargement Consider left ventricular hypertrophy Electronically Signed On 11-01-2024 21:40:55 PST by Gonzalez Iverson Please click the below link to view image of tracing.
== END 2024-10-28 16:44 | disposition home or self-care (01) | DRG 248 ==
LOC: ER 05:40 → OVERFLOW 08:12 → CENTRAL 23:35
PROVIDERS: ADMIT Student in an Organized Health Care Education/Training Program; ATTEND Student in an Organized Health Care Education/Training Program
DX: A04.9 Bacterial intestinal infection, unspecified (principal); N17.9 Acute kidney failure, unspecified; E44.1 Mild protein-calorie malnutrition; E87.1 Hypo-osmolality and hyponatremia; I13.10 Hypertensive heart and chronic kidney disease without heart failure, with stage 1 through stage 4 chronic kidney disease, or unspecified chronic kidney disease; K92.2 Gastrointestinal hemorrhage, unspecified; I71.43 Infrarenal abdominal aortic aneurysm, without rupture; N18.32 Chronic kidney disease, stage 3b; J44.9 Chronic obstructive pulmonary disease, unspecified; I16.1 Hypertensive emergency; I25.10 Atherosclerotic heart disease of native coronary artery without angina pectoris; Z80.3 Family history of malignant neoplasm of breast; Z95.5 Presence of coronary angioplasty implant and graft; Z68.1 Body mass index [BMI] 19.9 or less, adult; Z79.51 Long term (current) use of inhaled steroids; Z79.899 Other long term (current) drug therapy; Z79.82 Long term (current) use of aspirin; Z68.20 Body mass index [BMI] 20.0-20.9, adult
CPT/HCPCS: 36415; 71046; 74176; 80048; 80053; 80307; 81001; 84100; 84484; 85025; 85610; 87081; 94640; 96365; 99291; 99292; G0378; J2543; J3490

== ENCOUNTER 2025-04-19 17:45 | Inpatient (IN) | payer MEDICAID ==
[~2025-04-19] VITALS: Ht 182.9 cm; Wt 60.5 kg
[~2025-04-19 17:45] MED LIST changes: -CIPR-173 PO; +LEVO500T91 PO
[2025-04-19] MEDS: SODIUM CHLORIDE 0.9% 1,000 ML IV ONE (19:05)
--- NOTE | 2025-04-19 19:12 | ED.PDOC ---
SOB-HPI HPI Comments 65y M who presents to the ED via EMS for chief complaint of shortness of breath. EMS states pt has been having shortness of breath since 1630 this afternoon. Pt states he called EMS 1x hours later after taking his albuterol and still being short of breath. EMS arrived on scene and noted pt was in respiratory distress, diaphoretic and pale in noted tripod position with 02 sat of 88%. Pt was given duo neb and placed on simple mask NRB 4 L and pt 02 sat jose of 96 % and pt was brought to the ED. Pt in the ED, states he also recently dx with throat cancer and has chemotherapy starting soon. Pt has noted extensive history of COPD, WA, HTN and HLD. Chief Complaint: Shortness of Breath Time Seen by MD: 18:45 Primary Care Provider: NONE Reviewed notes: Medications, Allergies Information Source: Patient, Emergency Med Personnel Mode of Arrival: EMS Past Medical History PAST MEDICAL HISTORY: Cancer, COPD, High Lipids, HTN, [place], Thyroid Surgical History: PTCA Family History Family History: No family hx of Cancer, No family hx of Liver hoda Social History Smoker: Non-Smoker Alcohol: Denies ETOH Use Drugs: Denies Drug Use Lives In: Home Constitutional: denies: chills, diaphoresis, fatigue, fever, malaise, sweats, weakness, others EENTM: denies: blurred vision, double vision, ear bleeding, ear discharge, ear drainage, ear pain, ear ringing, eye pain, eye redness, hearing loss, mouth pain, mouth swelling, nasal discharge, nose bleeding, nose congestion, nose pain, photophobia, tearing, throat pain, throat swelling, voice changes, others Respiratory: reports: shortness of breath, SOB with excertion; denies: cough, hemoptysis, orthopnea, SOB at rest, stridor, wheezing, others Cardiovascular: denies: chest pain, dizzy spells, diaphoresis, Dyspnea on exertion, edema, irregular heart beat, left arm pain, lightheadedness, palpitations, PND, syncope, others Gastrointestinal: denies: abdomen distended, abdominal pain, blood streaked bowels, constipated, diarrhea, dysphagia, difficulty swallowing, hematemesis, melena, nausea, poor appetite, poor fluid intake, rectal bleeding, rectal pain, vomiting, others Genitourinary: denies: burning, dysuria, flank pain, frequency, hematuria, incontinence, penile discharge, penile sore, pain, testicle pain, testicle swelling, urgency, others Neurological: denies: dizziness, fainting, headache, left sided numbness, left sided weakness, numbness, paresthesia, pre-existing deficit, right sided numbness, right sided weakness, seizure, speech problems, tingling, tremors, weakness, others Musculoskeletal: denies: back pain, gout, joint pain, joint swelling, muscle pain, muscle stiffness, neck pain, others Integumetry: denies: bruises, change in color, change in hair/nails, dryness, laceration, lesions, lumps, rash, wounds, others Allergic/Immunocompromised: denies: Difficulty Healing, Frequent Infections, Hives, Itching, others Hematologic/Lymphatic: denies: anemia, blood clots, easy bleeding, easy bruising, swollen glands, others Endocrine: denies: excessive hunger, excessive sweating, excessive thirst, excessive urination, flushing, intolerance to cold, intolerance to heat, unexplained weight gain, unexplained weight loss, others Psychiatric: denies: anxiety, bipolar disorder, depression, hopeless, panic disorder, schizophrenia, sleepless, suicidal, others All Other Systems: Reviewed and Negative Physical Exam General Appearance: Moderate Distress, Obese HEENT: Normal ENT Inspection, PERRL/EOMI Neck: Full Range of Motion, Non-Tender, Normal, Normal Inspection Respiratory: Crackles, Decreased Breath Sounds, Expiration, Inspiration, No Respiratory Distress Cardiovascular: No Edema, No JVD, No Murmur, No Gallop, Normal Peripheral Pulses, Regular Rate/Rhythm Breast Exam: Deferred Gastrointestinal: No Organomegaly, Non Tender, No Pulsatile Mass, Normal Bowel Sounds, Soft Genitalia: Deferred Pelvic: Deferred Rectal: Deferred Extremities: No calf tenderness, Normal capillary refill, Normal inspection, Normal range of motion, Non-tender, No pedal edema Neurologic: Alert, computer science instructor II-XII nml as Tested, No Motor Deficits, Normal Affect, Normal Mood, No Sensory Deficits Cerebellar Function: Normal Reflexes: Normal Skin: Dry, Normal Color, Warm Peripheral Pulses: 1+ carotid (R), 1+ carotid (L) Lymphatic: No Adenopathy EKG EKG : Pulse Rate (adult): 109 Soper: Normal Cardiac Rhythm: ST Was a procedure done? Was a procedure done?: No Differential Dx Differential Diagnosis: CHF, COPD, Dysrhythmia, Hypertension, Myocardial infarction, Pneumonia, Pulmonary Embolism, Respiratory Distress Comments acute resp failure, X-Ray, Labs, Meds, VS Vital Signs Date Time Temp Pulse Resp B/P (MAP) Pulse Ox O2 Delivery O2 Flow Rate FiO2 04/19/25 20:08 98.1 80 20 141/95 (110) 94 98.1 04/19/25 20:08 85 20 94 Nasal Cannula* 2 28 04/19/25 20:00 84 04/19/25 19:44 109 04/19/25 18:53 97.8 66 24 157/100 (119) 94 97.8 04/19/25 17:49 97.5 109 22 170/93 92 97.5 04/19/25 17:49 109 Lab Test 04/19/25 19:11 Range/Units White Blood Count 21.3 H 4.4-10.8 10^3/uL Red Blood Count 5.73 4.5-5.90 10^6/uL Hemoglobin 16.5 13.5-17.5 g/dL Hematocrit 48.6 41.0-53.0 % Mean Corpuscular Volume 84.9 80.0-100.0 fL Mean Corpuscular Hemoglobin 28.9 28.0-32.0 pg Mean Corpuscular Hemoglobin Concent 34.0 32.0-36.0 g/dL Red Cell Distribution Width 14.5 H 11.8-14.3 % Platelet Count 254 140-450 10^3/uL Mean Platelet Volume 8.5 6.9-10.8 fL Neutrophils (%) (Auto) 90.8 H 37.0-80.0 % Lymphocytes (%) (Auto) 2.2 L 10.0-50.0 % Monocytes (%) (Auto) 6.8 0.0-12.0 % Eosinophils (%) (Auto) 0.0 0.0-7.0 % Basophils (%) (Auto) 0.2 0.0-2.0 % Neutrophils # (Auto) 19.4 H 1.6-8.6 10 ^3/uL Lymphocytes # (Auto) 0.5 0.4-5.4 10 ^3/uL Monocytes # (Auto) 1.5 H 0-1.3 10 ^3/uL Eosinophils # (Auto) 0 0-0.8 10 ^3/uL Basophils # (Auto) 0.1 0-0.2 10 ^3/uL Nucleated Red Blood Cells 0.0 % Prothrombin Time 10.5 9.3-11.8 sec Prothrombin Time INR 0.99 0.9-1.15 Activated Partial Thromboplast Time 27.6 24.5-34.5 SEC D-Dimer, Quantitative 2.95 H 0.0-0.49 mg/L FEU Sodium Level 136 136-145 mmol/L Potassium Level 4.2 3.5-5.1 mmol/L Chloride Level 102 98-107 mmol/L Carbon Dioxide Level 24 20-31 mmol/L Anion Gap 10 5-15 Blood Urea Nitrogen 15 9-23 mg/dL Creatinine 1.01 0.700-1.30 mg/dL Glomerular Filtration Rate Calc 83 >90 mL/min BUN/Creatinine Ratio 14.9 10.0-20.0 Serum Glucose 122 H 74-106 mg/dL Calcium Level 9.6 8.7-10.4 mg/dL Magnesium Level 1.8 1.6-2.6 mg/dL Total Bilirubin 1.5 H 0.2-1.0 mg/dL Aspartate Amino Transferase (AST) 17 13-40 U/L Alanine Aminotransferase (ALT) 14 7-40 U/L Alkaline Phosphatase 74 46-116 U/L Troponin I High Sensitivity 10 </=54 ng/L B-Type Natriuretic Peptide 62.84 0-100 pg/mL Total Protein 6.7 5.7-8.2 g/dL Albumin 4.4 3.2-4.8 g/dL Current Medications Medications (Trade) Dose Ordered Sig/Ronn Route Start Time Stop Time Status Last Admin Sodium Chloride 1,000 ml @ 150 mls/hr Q6H40M ONCE IV 04/19/25 19:00 04/20/25 01:39 04/19/25 19:[address] [address] Ph: [phone] DIAGNOSTIC IMAGING Diagnostic Imaging Report : [id number] Signed PATIENT: MATILDE PANDYA ACCT: [id number] UNIT: [id number] : 1960 LOC: ER ROOM / BED: / AGE / SEX: 65 / M ADM STATUS: REG ER SERVICE 1848 ORDERING PHYSICIAN: MARU HEATH MD PROCEDURE(s): CXR2 - CHEST TWO VIEWS ROUTINE REASON: sob ORDER NUMBER(s): [id number], ACCESSION NUMBER(s): [id number] XY CHEST TWO VIEWS ROUTINE CLINICAL HISTORY: sob COMPARISON: XY CHEST TWO VIEWS ROUTINE on DOS: 10/27/24, CHEST PORTABLE on DOS: 09/06/22, CHEST PORTABLE on DOS: 08/28/22, CXR1 on DOS: 06/05/21 TECHNIQUE: Frontal and lateral view of the chest was obtained FINDINGS: Lines and Tubes: None Lungs: No focal consolidation. Pleura: No effusion. No pneumothorax. Cardiomediastinal contours: Unremarkable Bones: No acute osseous abnormality. IMPRESSION: No acute cardiopulmonary disease. ATED BY: CAMILA KRAUSE MD DICTATED DATE/TIME: 04/19/252040 SIGNED BY: CAMILA KRAUSE MD SIGNED DATE/TIME: 04/19/252040 CC: X-Ray, Labs, Meds, VS Comment Course in the emergency department eventful patient came in both shortness of breath he is 65 Chest x-ray is normal EKG shows normal sinus rhythm at 109 CBC [id number] with 90.8% neutrophils H&H normal D-dimer elevated at 2.95 INR 0.99 Troponin 10 BNP [address] angio pending Dr. Ramsey to follow up Time of 1ST Reevaluation: 19:10 Reevaluation 1ST: Unchanged Time of 2ND Reevaluation: 21:40 Reevaluation 2ND: Unchanged Patient Education/Counseling: Diagnosis, Treatment, Prognosis Family Education/Counseling: Diagnosis, Treatment, Prognosis, No Family Present Assigned to Dr. dr ramsey Change of Shift?: Yes SEPSIS Sepsis Screen Date sepsis recognized/suspect: Apr 19, 2025 Time Sepsis recognized/suspect: 1751 Recent Procedure: No On Antibiotic Therapy: No Respiratory Rate >20: Yes Heart Rate >90: Yes Temp<36 C (96.8 F) or >38.3 C: No SBP <90 or MAP <65 mmHG: No New Acute Mental Status Change: No Is the patient on CPAP, BIPAP,: No Physician Orders Electrocardigram (04/19/25 17:52) Heplock Iv (04/19/25 18:48) Chief Customer Officer (04/19/25 18:48) Blood Pressure (04/19/25 18:48) Oxygen (04/19/25 18:48) Pulse Oximetry (04/19/25 18:48) Chest Two Views Routine (04/19/25 18:48) Sodium Chloride 0.9% (04/19/25 19:00) Blood Culture (04/19/25 21:35) Urinalysis (04/19/25 21:35) Ct Angio Chest Contrast (04/19/25 21:35) Vital Signs Date Time Temp Pulse Resp B/P (MAP) Pulse Ox O2 Delivery O2 Flow Rate FiO2 04/19/25 20:08 98.1 80 20 141/95 (110) 94 98.1 04/19/25 20:08 85 20 94 Nasal Cannula* 2 28 04/19/25 20:00 84 04/19/25 19:44 109 04/19/25 18:53 97.8 66 24 157/100 (119) 94 97.8 04/19/25 17:49 97.5 109 22 170/93 92 97.5 04/19/25 17:49 109 Laboratory Tests Test 04/19/25 19:11 White Blood Count 21.3 10^3/uL (4.4-10.8) H Medications Medications Dose Ordered Sig/Ronn Route Start Time Stop Time Status Last Admin Dose Admin Sodium Chloride 1,000 ml @ 150 mls/hr Q6H40M ONCE IV 04/19/25 19:00 04/20/25 01:39 04/19/25 19:05 Departure 1 Departure Time of Disposition: 21:41 Impression: Primary Impression: COPD exacerbation Additional Impressions: Uncontrolled hypertension Elevated d-dimer Leukocytosis Qualified Codes: D72.829 - Elevated white blood cell count, unspecified Shortness of breath Disposition: ADMITTED INPATIENT Condition: Serious Critical Care Note Critical Care Time?: No Stability Stability form required: No Heart Score Heart Score: Heart Score Response (Comments) Value History Moderate Suspicious 1 EKG Normal 0 Age 45-64 1 Risk Factors >3 or Hx ASHD 2 Troponin Normal limit 0 Total 4 I personally scribed for MARU HEATH MD ([email or web address]) on 04/19/25 at 19:12. Electronically submitted by Joselyn Hughes ([facility]). I personally scribed for MARU HEATH MD ([email or web address]) on 04/19/25 at 21:21. Electronically submitted by Joselyn Hughes ([facility]). I personally scribed for MARU HEATH MD ([email or web address]) on 04/19/25 at 21:21. Electronically submitted by Joselyn Hughes ([facility] MARU HEATH MD Apr 19, 2025 19:12
[2025-04-19 19:33] LABS: Hematocrit 48.6 % (41.0-53.0); Hemoglobin 16.5 g/dL (13.5-17.5); Mean Corpuscular Hemoglobin 28.9 pg (28.0-32.0); Mean Corpuscular Volume 84.9 fL (80.0-100.0); Nucleated Red Blood Cells % 0.0 %
[2025-04-19 19:49] LABS: Alanine Aminotransferase 14 U/L (7-40); Alkaline Phosphatase 74 U/L (46-116); Calcium 9.6 mg/dL (8.7-10.4); Carbon Dioxide 24 mmol/L (20-31); Chloride 102 mmol/L (98-107)
[2025-04-19 19:50] LABS: Albumin 4.4 g/dL (3.2-4.8); Anion Gap 10 (5-15); BUN/Creatinine Ratio 14.9 (10.0-20.0); Blood Urea Nitrogen 15 mg/dL (9-23); Magnesium 1.8 mg/dL (1.6-2.6); Potassium 4.2 mmol/L (3.5-5.1); Sodium 136 mmol/L (136-145); Total Protein 6.7 g/dL (5.7-8.2)
[2025-04-19 19:55] LABS: Bilirubin, Total 1.5 mg/dL (0.2-1.0); Glucose 122 mg/dL (74-106)
[2025-04-19 20:07] LABS: INR 0.99 (0.9-1.15); Partial Thromboplastin Time 27.6 SEC (24.5-34.5); Prothrombin Time 10.5 sec (9.3-11.8)
[2025-04-19 20:08] VITALS: PULSE 85; RESP 20; O2SAT 94
--- NOTE | 2025-04-19 20:44 | DVH ---
XY CHEST TWO VIEWS ROUTINE CLINICAL HISTORY: sob COMPARISON: XY CHEST TWO VIEWS ROUTINE on DOS: 10/27/24, CHEST PORTABLE on DOS: 09/06/22, CHEST PORTAB LE on DOS: 08/28/22, CXR1 on DOS: 06/05/21 TECHNIQUE: Frontal and lateral view of the chest was obtained FINDINGS: Lines and Tubes: None Lungs: No focal consolidation. Pleura: No effusion. No pneumothorax. Cardiomediastinal contours: Unremarkable Bones: No acute osseous abnormality. IMPRESSION: No acute cardiopulmonary disease.
[2025-04-19] MEDS ORDERED: IOHEXOL 350 MG/ML 100ML IJ ONE (21:44)
[2025-04-19] MEDS: cefTRIAXone 1GM/50ML D5W 50 ML IV ONE (21:45)
[2025-04-19] MEDS ORDERED: ACETAMINOPHEN 325 MG TAB PO PRN (22:30)
--- NOTE | 2025-04-19 22:53 | DVHHPRES ---
History of Present Illness Resident Creating Document: ESTEBAN ANTUNEZ RESIDENT History of Present Illness This is a 65-year-old male with past medical history of COPD, PR with PTCA and stent placed, hypertension, dyslipidemia. Patient presented to the ED with chief complaint of shortness of breaths associated with productive cough and sputum production. On admission, patient was in significant respiratory distress in triple position saturating 88%. Patient was initially placed on simple mask at 4 L of oxygen through nasal cannula with significant improvement of saturation. Initial labs showed a significant elevation of WBC at 21.3 but rest of labs were grossly unremarkable. Troponins came back negative and BNP was 62.84. EKG showed sinus tachycardia with no ST segment elevation or depression. Initial chest x-ray showed bilateral hyperinflated lungs but no evident consolidation at this time. Upon my examination, patient was on 2 L of oxygen through nasal cannula saturating 95% in no significant distress. There were very mild crackles on lower lung elias and very mild wheezing. D-dimer was slightly elevated reason why ED order a CT angio of the chest to rule out PE. We will start the patient on azithromycin, methylprednisolone 40 mg IV daily for possible COPD exacerbation. We will admit the patient for further ass essment and management. Past medical history: COPD, PR, hypertension, dyslipidemia Past surgical history: PTCA with one stent placed Social history: Admits smoking marijuana but no cigarettes, alcohol or any other drugs Home medications: States that takes albuterol inhaler and metoprolol but does not remember the dosage. Cardiovascular: HTN, PR, hyperipidemia Pulmonary: COPD Past Surgical History: Other (PTCA) Family History: None Smoke: No ALCOHOL: none Drugs: Marijuana Lives: Friends Domestic Violence: Neg Review of Systems Constitutional: Yes: Weakness, Malaise; No: Fever, Chills, Sweats, Other Eyes: No: Pain, Vision change, Conjunctivae inflammation, Eyelid inflammation, Other, Redness ENT: No: Ear pain, Ear discharge, Nose pain, Nose discharge, Nose congestion, Mouth pain, Mouth swelling, Throat pain, Throat swelling, Other Respiratory: Cough, Shortness of breath, Wheezing; No: Dry, SOB with excertion, Hemoptysis, Pleuritic Pain, Sputum, Wheezing, Other Cardiovascular: No: Chest Pain, Palpitations, Orthopnea, Paroxysmal Noc. Dyspnea, Edema, Lt Headedness, Other Gastrointestinal: No: Nausea, Vomiting, Abdominal Pain, Diarrhea, Constipation, Melena, Hematochezia, Other Genitourinary: No Dysuria, No Frequency, No Incontinence, No Hematuria, No Retention, No Other Musculoskeletal: No: other, neck pain, shoulder pain, arm pain, back pain, hand pain, leg pain, foot pain Skin: No: Rash, Lesions, Jaundice, Bruising, Other Neurological: No: Weakness, Numbness, Incoordination, Change in speech, Confusion, Seizures, Other Allergies: Coded Allergies: NO KNOWN ALLERGIES (Unverified , 01/25/16) Medications Current Medications Medications Dose Ordered Sig/Ronn Route Start Time Stop Time Status Last Admin Dose Admin Acetaminophen 650 mg Q6HP PRN PO 04/19/25 22:30 UNV Enoxaparin Sodium 40 mg DAILY SC 04/20/25 10:00 UNV Methylprednisolone Sodium Succinate 40 mg DAILY IV 04/19/25 22:45 UNV Azithromycin 250 mg DAILY PO 04/20/25 10:00 UNV Ceftriaxone Sodium 50 ml @ 100 mls/hr DAILY IV 04/20/25 10:00 UNV Exam Vital Signs Vital Signs Date Time Temp Pulse Resp B/P (MAP) Pulse Ox O2 Delivery O2 Flow Rate FiO2 04/19/25 20:08 98.1 80 20 141/95 (110) 94 98.1 04/19/25 20:08 Nasal Cannula* 2 28 General Appearance: Alert, Oriented X3, Cooperative, mild distress HEENT: Atraumatic, PERRLA, EOMI, Mucous membr. moist/pink Respiratory: Normal air movement, Other (Very mild crackles and mild wheezing) Cardiovascular: Regular rate, Normal S1 Abdominal: Normal bowel sounds, Soft, No tenderness, No hepatospenomegaly Extremities: No clubbing, No cyanosis, No edema, Normal pulses, No tenderness/swelling Skin: No rashes, No breakdown, No significant lesion Neuro: Normal gait, Normal speech, Strength at 5/5 X4 ext, Normal tone, Sensation intact, Cranial nerves 3-12 NL, Reflexes 2+ Psych/Mental Status: Mental status NL, Mood NL Labs/Xrays Labs Test 04/19/25 19:11 Range/Units White Blood Count 21.3 H 4.4-10.8 10^3/uL Red Blood Count 5.73 4.5-5.90 10^6/uL Hemoglobin 16.5 13.5-17.5 g/dL Hematocrit 48.6 41.0-53.0 % Mean Corpuscular Volume 84.9 80.0-100.0 fL Mean Corpuscular Hemoglobin 28.9 28.0-32.0 pg Mean Corpuscular Hemoglobin Concent 34.0 32.0-36.0 g/dL Red Cell Distribution Width 14.5 H 11.8-14.3 % Platelet Count 254 140-450 10^3/uL Mean Platelet Volume 8.5 6.9-10.8 fL Neutrophils (%) (Auto) 90.8 H 37.0-80.0 % Lymphocytes (%) (Auto) 2.2 L 10.0-50.0 % Monocytes (%) (Auto) 6.8 0.0-12.0 % Eosinophils (%) (Auto) 0.0 0.0-7.0 % Basophils (%) (Auto) 0.2 0.0-2.0 % Neutrophils # (Auto) 19.4 H 1.6-8.6 10 ^3/uL Lymphocytes # (Auto) 0.5 0.4-5.4 10 ^3/uL Monocytes # (Auto) 1.5 H 0-1.3 10 ^3/uL Eosinophils # (Auto) 0 0-0.8 10 ^3/uL Basophils # (Auto) 0.1 0-0.2 10 ^3/uL Nucleated Red Blood Cells 0.0 % Prothrombin Time 10.5 9.3-11.8 sec Prothrombin Time INR 0.99 0.9-1.15 Activated Partial Thromboplast Time 27.6 24.5-34.5 SEC D-Dimer, Quantitative 2.95 H 0.0-0.49 mg/L FEU Sodium Level 136 136-145 mmol/L Potassium Level 4.2 3.5-5.1 mmol/L Chloride Level 102 98-107 mmol/L Carbon Dioxide Level 24 20-31 mmol/L Anion Gap 10 5-15 Blood Urea Nitrogen 15 9-23 mg/dL Creatinine 1.01 0.700-1.30 mg/dL Glomerular Filtration Rate Calc 83 >90 mL/min BUN/Creatinine Ratio 14.9 10.0-20.0 Serum Glucose 122 H 74-106 mg/dL Calcium Level 9.6 8.7-10.4 mg/dL Magnesium Level 1.8 1.6-2.6 mg/dL Total Bilirubin 1.5 H 0.2-1.0 mg/dL Aspartate Amino Transferase (AST) 17 13-40 U/L Alanine Aminotransferase (ALT) 14 7-40 U/L Alkaline Phosphatase 74 46-116 U/L Troponin I High Sensitivity 10 </=54 ng/L B-Type Natriuretic Peptide 62.84 0-100 pg/mL Total Protein 6.7 5.7-8.2 g/dL Albumin 4.4 3.2-4.8 g/dL SEPSIS Sepsis Screen Date sepsis recognized/suspect: Apr 19, 2025 Time Sepsis recognized/suspect: 2011 Recent Procedure: No On Antibiotic Therapy: No Respiratory Rate >20: No Heart Rate >90: No Temp<36 C (96.8 F) or >38.3 C: No SBP <90 or MAP <65 mmHG: No New Acute Mental Status Change: No Is the patient on CPAP, BIPAP,: No Physician Orders Electrocardigram (04/19/25 17:52) Heplock Iv (04/19/25 18:48) Heater [place] (04/19/25 18:48) Blood Pressure (04/19/25 18:48) Oxygen (04/19/25 18:48) Pulse Oximetry (04/19/25 18:48) Chest Two Views Routine (04/19/25 18:48) Sodium Chloride 0.9% (04/19/25 19:00) Blood Culture (04/19/25 21:35) Urinalysis (04/19/25 21:35) Ct Angio Chest Contrast (04/19/25 21:35) Admit (04/19/25 22:30) Code Status (04/19/25 22:30) Vital Signs .PER UNIT PROTOCOL (04/19/25 22:30) Review Orders With Adm.Md (04/19/25 22:30) Encourage Activity As Tolerate (04/19/25 22:30) Acetaminophen Tablet (Tylenol Tablet) (04/19/25 22:30) Notify Md Of Changes From Base (04/19/25 22:30) Advance Directive (04/19/25 22:30) Basic Metabolic Panel (04/20/25 04:00) Urinalysis (04/19/25 22:30) Lipid Panel (04/19/25 22:30) Patient Condition (04/19/25 22:30) Allergies (04/19/25 22:30) Drug Screen (04/19/25 22:30) Hemoglobin A1c (04/19/25 22:30) Enoxaparin Sodium (Lovenox) (04/20/25 10:00) Thyroid Stimulating Hormone (04/19/25 22:34) Covid19 Antigen Rosio (04/19/25 ) Rapid Influenza A&B (04/19/25 22:34) Respiratory Culture W/ Gs (04/19/25 22:34) Cardiac Diet-2gna,Lofat,Lochol (04/20/25 Breakfast) Methylprednisolone Sod Succ (Solu Medrol (04/19/25 22:45) Azithromycin 500mg/ 250ml (Zithromax 50 (04/19/25 22:45) Azithromycin Tablet (Zithromax Tablet) (04/20/25 10:00) Ceftriaxone Ivpb Rocephin (04/20/25 10:00) Ipratropium Medneb (Atrovent Medneb) (04/20/25 02:00) Levalbuterol Hcl (Xopenex Medneb) (04/20/25 02:00) Vital Signs Date Time Temp Pulse Resp B/P (MAP) Pulse Ox O2 Delivery O2 Flow Rate FiO2 04/19/25 20:08 98.1 80 20 141/95 (110) 94 98.1 04/19/25 20:08 85 20 94 Nasal Cannula* 2 28 04/19/25 20:00 84 04/19/25 19:44 109 04/19/25 18:53 97.8 66 24 157/100 (119) 94 97.8 04/19/25 17:49 97.5 109 22 170/93 92 97.5 04/19/25 17:49 109 Laboratory Tests Test 04/19/25 19:11 White Blood Count 21.3 10^3/uL (4.4-10.8) H Medications Medications Dose Ordered Sig/Ronn Route Start Time Stop Time Status Last Admin Dose Admin Ceftriaxone Sodium 50 ml @ 100 mls/hr ONCE ONCE IV 04/19/25 21:45 04/19/25 22:14 DC 04/19/25 21:45 100 MLS/HR Sodium Chloride 1,000 ml @ 150 mls/hr Q6H40M ONCE IV 04/19/25 19:00 04/20/25 01:39 04/19/25 19:05 150 MLS/HR Assessment/Plan Assessment/Plan Assessment/plan Acute hypoxic respiratory failure likely due to COPD exacerbation Possible viral pneumonia R/O pulmonary embolism Primary hypertension Dyslipidemia History of PR with one stent placed Plan -chest x-ray showed bilateral hyperinflated lungs with no evident of consolidation -WBC significantly elevated at 21.3 -currently on 2 L of oxygen through nasal cannula -start IV azithromycin and transitioned to p.o. tomorrow a.m. -start IV ceftriaxone -methylprednisolone 40 mg IV daily -ordered COVID and influenza a and B tests -start med nebs albuterol and ipratropium q.4 scheduled -cardiac diet -ordered TSH -CT angio of the chest still pending results, D-dimer was slightly elevated -start atorvastatin 40 mg daily -start aspirin 81 mg daily -start carvedilol 3.125 bid -monitor blood pressure and saturation closely Goals of care discussed with the patient at bedside, full code Plan discussed with Dr. Lopez Plan discussed with: Patient My Orders Orders - ESTEBAN ANTUNEZ RESIDENT Procedure Category Date Status Time Admit ADMIT 04/19/25 Transmitted 22:30 Code Status CODE 04/19/25 Transmitted 22:30 Vital Signs MORENITA 04/19/25 In Process 22:30 Review Orders With MORENITA 04/19/25 In Process Adm. 22:30 Encourage Activity As MORENITA 04/19/25 In Process Tolerate 22:30 Acetaminophen Tablet PHA 04/19/25 Logged (Tylenol Tablet) 22:30 Notify Of Changes MORENITA 04/19/25 In Process From Base 22:30 Advance Directive MORENITA 04/19/25 In Process 22:30 Basic Metabolic Panel LAB 04/20/25 Verified 04:00 Urinalysis LAB 04/19/25 Logged 22:30 Lipid Panel LAB 04/19/25 Logged 22:30 Patient Condition ORDERS 04/19/25 Transmitted 22:30 Allergies MORENITA 04/19/25 In Process 22:30 Drug Screen LAB 04/19/25 Logged 22:30 Hemoglobin A1c LAB 04/19/25 Logged 22:30 Enoxaparin Sodium PHA 04/20/25 Logged (Lovenox) 10:00 Thyroid Stimulating LAB 04/19/25 Logged Hormone 22:34 Covid19 Antigen Rosio LAB 04/19/25 Logged Rapid Influenza A&B LAB 04/19/25 Logged 22:34 Respiratory Culture CONNIE 04/19/25 Logged W/ Gs 22:34 Cardiac DIET 04/20/25 Transmitted Diet-2gna,Lofat,Lochol Breakfast Methylprednisolone PHA 04/19/25 Logged Sod Succ (Solu Medrol 22:45 Azithromycin 500mg/ PHA 04/19/25 Logged 250ml (Zithromax 50 22:45 Azithromycin Tablet PHA 04/20/25 Transmitted (Zithromax Tablet) 10:00 Ceftriaxone Ivpb PHA 04/20/25 Transmitted Rocephin 10:00 Ipratropium Medneb PHA 04/20/25 Transmitted (Atrovent Medneb) 02:00 Levalbuterol Hcl PHA 04/20/25 Transmitted (Xopenex Medneb) 02:00 ESTEBAN ANTUNEZ RESIDENT Apr 19, 2025 22:53
--- NOTE | 2025-04-19 22:56 | DVH ---
STUDY: CT CT ANGIO CHEST CONTRAST Indication: Pulmonary embolism TECHNIQUE: Axial images were obtained through the chest with reformat images post intravenous contr ast. Reconstruction processing of 3D angiographic images of the vessels was obtained. 80 mL of omnipaque 35mg/dl was administered. DLP: default value FINDINGS: PULMONARY ARTERIES: No evidence of pulmonary embolism. LUNGS AND PLEURA: Scattered tree and bud densities predominantly peripherally and bilateral lower lobes and endobronchi al thickening may reflect atypical pneumonia and/or underlying chronic lung disease. extensive pulmon carolann emphysema. bibasilar subsegmental atelectasis. No definite pulmonary edema. No pleural effusion. No pneumothorax. MEDIASTINUM: No lymphadenopathy or mass. The heart shows no acute findings. extensive coronary atherosclerosis. tr carmen pericardial effusion. minimally dilated ascending aorta measuring 4.1cm. aortic arch measures up to 4.0 cm. moderate athero sclerosis of the aorta. The pulmonary trunk, and branches of the vessels in the mediastinum are withi n normal limits. mild debris within the trachea. SUPRACLAVICULAR AND AXILLARY: No abnormalities seen in these regions. No mass or significant lymphadenopathy. UPPER ABDOMEN: The visualized upper abdomen is unremarkable. BONES AND SOFT TISSUES: The ribs are unremarkable. The visualized spine shows no significant acute findings. No focal bony mass lesions noted. The subcutaneous soft tissues are unremarkable. IMPRESSION: 1. No acute pulmonary emboli. 2. No large focal consolidations. 3. Scattered tree and bud densities predominantly peripherally and bilateral lower lobes and endobron chial thickening may reflect atypical pneumonia and/or underlying chronic lung disease. 4. extensive pulmonary emphysema. 5. minimally dilated ascending thoracic aorta measuring up to 4.1cm.
[2025-04-19 23:15] LABS: Triglycerides 67 mg/dL (< 150)
[2025-04-19 23:17] LABS: Cholesterol 167 mg/dL (< 200); HDL Cholesterol 50 mg/dL (40-59)
[2025-04-19] MEDS: methylPREDNISolone SOD SUCC 40 MG/ML VL IV SCH (23:40)
[2025-04-19] MEDS: AZITHROMYCIN 500MG/ 250ML 250 ML IV ONE (23:40)
[2025-04-19] MEDS: CARVEDILOL 3.125 MG TAB PO SCH (23:43)
[2025-04-20] VITALS (18 sets, daily range): BP systolic 127–158; BP diastolic 74–97; PULSE 60–97; RESP 14–24; TEMP 97.5–98.4; O2SAT 91–100
[2025-04-20 00:02] LABS: Urine Protein, UAD 1+ (Negative)
[2025-04-20 00:13] LABS: Cannabinoid Screen, Urine Pos (NEGATIVE)
[2025-04-20 00:16] LABS: Amphetamine Screen, Urine Pos (NEGATIVE); Barbiturate Scree,Urine Neg (NEGATIVE); Benzodiazephine Screen, Urine Neg (NEGATIVE); Cocaine Screen, Urine Neg (NEGATIVE); Opiate Scree,Urine Neg (NEGATIVE); Phencyclidine Screen, Urine Neg (NEGATIVE)
[2025-04-20] MEDS: IPRATROPIUM BROM 0.5 MG/2.5ML INH SOL NEB SCH (01:40)
[2025-04-20] MEDS: LEVALBUTEROL HCL 1.25 MG/3 ML NEB NEB SCH (01:40)
[2025-04-20 10:03] LABS: Chloride 101 mmol/L (98-107); Potassium 4.3 mmol/L (3.5-5.1)
[2025-04-20] MEDS: cefTRIAXone 1GM/50ML D5W 50 ML IV SCH (10:04)
[2025-04-20] MEDS: AZITHROMYCIN 250 MG TAB PO SCH (10:05)
[2025-04-20] MEDS: ENOXAPARIN SOD 40 MG/0.4 ML SYRINGE SC SCH (10:05)
[2025-04-20 10:09] LABS: Sodium 136 mmol/L (136-145)
[2025-04-20 10:19] LABS: COVID19 ANTIGEN SOFIA FIA NEGATIVE (NEGATIVE)
--- NOTE | 2025-04-20 10:24 | DVH ---
Bilateral lower extremity venous duplex Clinical History: high d dimer Comparison: None Findings: Duplex Doppler evaluation of the deep venous systems of both lower extremities from the common femora l veins to the popliteal veins including color Doppler and spectral/pulsed waveform analysis was perf ormed. RIGHT SIDE: The common femoral vein demonstrates appropriate compressibility and waveform variability. There is compressibility/patency of the great saphenous vein at the proximal thigh. The femoral vein demonstrates appropriate compressibility and waveform variability. The deep femoral vein demonstrates appropriate compressibility and waveform variability. The popliteal vein demonstrates appropriate compressibility and waveform variability. There is normal compressibility at the tibioperoneal trunk. LEFT SIDE: The common femoral vein demonstrates appropriate compressibility and waveform variability. There is compressibility/patency of the great saphenous vein at the proximal thigh. The femoral vein demonstrates appropriate compressibility and waveform variability. The deep femoral vein demonstrates appropriate compressibility and waveform variability. The popliteal vein demonstrates appropriate compressibility and waveform variability. There is normal compressibility at the tibioperoneal trunk. IMPRESSION: No right or left femoropopliteal venous thrombosis. If clinical concern/symptoms persist or worsen, short-interval follow-up study is suggested. END IMPRESSION:
[2025-04-20 10:25] LABS: Calcium 9.3 mg/dL (8.7-10.4)
[2025-04-20 10:27] LABS: Anion Gap 11 (5-15); Carbon Dioxide 24 mmol/L (20-31)
[2025-04-20 10:32] LABS: BUN/Creatinine Ratio 15.7 (10.0-20.0); Blood Urea Nitrogen 17 mg/dL (9-23)
[2025-04-20 10:34] LABS: Glucose 201 mg/dL (74-106)
[2025-04-20 10:52] LABS: Hematocrit 44.9 % (41.0-53.0); Hemoglobin 15.1 g/dL (13.5-17.5); Mean Corpuscular Hemoglobin 29.1 pg (28.0-32.0); Mean Corpuscular Volume 86.3 fL (80.0-100.0)
[2025-04-20 12:23] LABS: Total Cells Counted 100.0 (100)
--- NOTE | 2025-04-20 19:44 | DVHPNRES ---
Progress Note Date Seen: Apr 20, 2025 Resident Creating Document: ALLEN BENNETT RESIDENT Medical Necessity Reason Pt with a Central, PICC or Fol: No Subjective Review of Systems 65-year-old male with past medical history of COPD, MA with PTCA and stent placed, hypertension, dyslipidemia. Patient presented to the ED with chief complaint of shortness of breaths associated with productive cough and sputum production. patient denies any fever, chills, sick contacts or any travel history, chest pain. On admission, patient was in significant respiratory distress in triple position saturating 88% which improved after 4 L of oxygen via nasal cannula. Past medical history: COPD, MA, hypertension, dyslipidemia Past surgical history: PTCA with one stent placed Social history: Admits smoking marijuana but no cigarettes, alcohol or any other drugs Family History: None Lives: Friends ROS: Patient was seen and examined by me today. Patient sees he is slightly short of breath on exertion but has no other active complaints. Objective vital signs Vital Sign Date Time Temp Pulse Resp B/P (MAP) Pulse Ox O2 Delivery O2 Flow Rate FiO2 04/20/25 17:00 98.1 77 19 158/89 (112) 94 98.1 04/20/25 14:26 Nasal Cannula 2.0 04/20/25 14:26 28 medications Current Medications Medications Dose Ordered Sig/Ronn Route Start Time Stop Time Status Last Admin Dose Admin Acetaminophen 650 mg Q6HP PRN PO 04/19/25 22:30 Enoxaparin Sodium 40 mg DAILY SC 04/20/25 10:00 04/20/25 10:05 40 MG Azithromycin 250 mg DAILY PO 04/20/25 10:00 04/20/25 10:05 250 MG Ceftriaxone Sodium 50 ml @ 100 mls/hr DAILY IV 04/20/25 10:00 04/20/25 10:04 100 MLS/HR Ipratropium Maynard 0.5 mg Q4HR NEB 04/20/25 02:00 04/20/25 18:48 0.5 MG Levalbuterol HCl 1.25 mg Q4HR NEB 04/20/25 02:00 04/20/25 18:48 1.25 MG Carvedilol 3.125 mg BID PO 04/19/25 23:00 04/20/25 10:05 3.125 MG Methylprednisolone Sodium Succinate 40 mg BID IV 8/14/25 19:45 UNV Examination General Appearance: Alert, Oriented X3, Cooperative, mild distress HEENT: Atraumatic, PERRLA, EOMI, Mucous membr. moist/pink Respiratory: Normal air movement, Other (Very mild crackles and mild wheezing) Cardiovascular: Regular rate, Normal S1 Abdominal: Normal bowel sounds, Soft, No tenderness, No hepatospenomegaly Extremities: No clubbing, No cyanosis, No edema, Normal pulses, No tenderness/swelling Skin: No rashes, No breakdown, No significant lesion Neuro: Normal gait, Normal speech, Strength at 5/5 X4 ext, Normal tone, Sensation intact, Cranial nerves 3-12 NL, Reflexes 2+ Psych/Mental Status: Mental status NL, Mood NL laboratory and microbiology Laboratory Tests 04/20/25 09:35 Test 04/20/25 09:35 Range/Units Serum Glucose 201 H 74-106 mg/dL Labs and/or images reviewed: Labs reviewed by me, Image(s) reviewed by me Problem List/Assessment/Plan Problem List/Assessment/Plan Acute hypoxic respiratory failure likely due to COPD exacerbation Sepsis secondary to Possible acute gram positive/negative bacterial pneumonia R/O pulmonary embolism -chest x-ray showed bilateral hyperinflated lungs with no evident of consolidation -WBC significantly elevated at 21.3 -currently on 2 L of oxygen through nasal cannula -azithromycin p.o. -IV ceftriaxone -methylprednisolone 40 mg IV b.i.d. daily -ordered COVID and influenza a and B tests negative -start med nebs albuterol and ipratropium q.4 scheduled - ct angio shows: 1. No acute pulmonary emboli. 2. No large focal consolidations. 3. Scattered tree and bud densities predominantly peripherally and bilateral lower lobes and endobronchial thickening may reflect atypical pneumonia and/or underlying chronic lung disease. 4. extensive pulmonary emphysema. #Primary hypertension #Dyslipidemia #History of MA with one stent placed -cardiac diet -D-dimer was slightly elevated, venous doppler shows: No right or left femoropopliteal venous thrombosis. -start atorvastatin 40 mg daily -start aspirin 81 mg daily -start carvedilol 3.125 bid -monitor blood pressure and saturation closely #Unspecified active throat cancer -follows [facility] oncologist -CTX and radiation starting soon #prediabetic HGB A1c 6.0 -counseled regarding better diet, healthy lifestyle exercise #thoracic aortic aneurysm, ascending type -CT angio shows thoracic aortic aneurysm of 4.1 cm -closely monitor outpatient follow up -Outpatient CT yearly #Polysubstance abuse cannabinoid, amphetamine Patient counseled regarding cessation of the side effects as well as dangers of taking above substances Goals of care discussed with the patient for more than 27 minutes: Full code status Case discussed with , patient and nurse. Plan discussed with: Patient, Other (rn) My Orders My Orders Orders - ALLEN BENNETT RESIDENT Procedure Category Date Status Time Bilat Lower Dvt US 04/20/25 Resulted 08:46 Methylprednisolone PHA 04/20/25 Logged Sod Succ (Solu Medrol 19:45 Date of Service: Apr 20, 2025 Billing Provider: KETAN JOHN MD Common Visit Codes: [id number] INP/OBS CARE(HIGH) ALLEN BENNETT RESIDENT Apr 20, 2025 19:44 MAKI FATIMA RESIDENT Apr 20, 2025 20:34 KETAN JOHN MD Apr 20, 2025 22:34
[2025-04-20] MEDS: methylPREDNISolone SOD SUCC 40 MG/ML VL IV SCH (22:09)
[2025-04-21] VITALS (18 sets, daily range): BP systolic 123–165; BP diastolic 78–104; PULSE 71–95; RESP 16–20; TEMP 97.4–98.9; O2SAT 94–99
[2025-04-21] MEDS: ENOXAPARIN SOD 40 MG/0.4 ML SYRINGE SC SCH (09:28)
[2025-04-21] MEDS: SODIUM CHLORIDE 0.9% 500 ML IV ONE (09:30)
[2025-04-21 10:12] LABS: Chloride 100 mmol/L (98-107); Potassium 4.2 mmol/L (3.5-5.1); Sodium 136 mmol/L (136-145)
[2025-04-21 10:13] LABS: Anion Gap 10 (5-15); Carbon Dioxide 26 mmol/L (20-31)
[2025-04-21 10:14] LABS: Calcium 9.1 mg/dL (8.7-10.4); Hematocrit 43.8 % (41.0-53.0); Hemoglobin 14.6 g/dL (13.5-17.5); Mean Corpuscular Hemoglobin 28.8 pg (28.0-32.0); Mean Corpuscular Volume 86.6 fL (80.0-100.0); Nucleated Red Blood Cells % 0.0 %
[2025-04-21 10:18] LABS: BUN/Creatinine Ratio 21.2 (10.0-20.0)
[2025-04-21 10:23] LABS: Blood Urea Nitrogen 24 mg/dL (9-23); Glucose 181 mg/dL (74-106)
[2025-04-21 10:33] LABS: Lactic Acid w/Reflex 2.4 mmol/L (0.4-2.0)
--- NOTE | 2025-04-21 11:55 | ECG ---
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
[2025-04-21 12:14] LABS: Hepatitis B Surface Antigen Negative (Negative); Hepatitis C Antibody Negative (Negative)
--- NOTE | 2025-04-21 14:55 | DVHPNRES ---
Progress Note Date Seen: Apr 21, 2025 Resident Creating Document: ALLEN BENNETT RESIDENT Medical Necessity Reason Pt with a Central, PICC or Fol: No Subjective Review of Systems 65-year-old male with past medical history of COPD, NV with PTCA and stent placed, hypertension, dyslipidemia. Patient presented to the ED with chief complaint of shortness of breaths associated with productive cough and sputum production. patient denies any fever, chills, sick contacts or any travel history, chest pain. On admission, patient was in significant respiratory distress in triple position saturating 88% which improved after 4 L of oxygen via nasal cannula. Past medical history: COPD, NV, hypertension, dyslipidemia Past surgical history: PTCA with one stent placed Social history: Admits smoking marijuana but no cigarettes, alcohol or any other drugs Family History: None Lives: Friends ROS: Patient was seen and examined by me today. Patient sees he is slightly short of breath on exertion but has no other active complaints. 04/21/2025: Patient was seen and examined by me today. Patient has no new complaints. He says that his breathing is getting better in his shortness of breath is lesser. Today the lactic acid was 2.4 and we gave him normal saline 1 L bolus. We are continuing his medication of azithromycin and ceftriaxone, methylprednisolone 40 mg IV twice a day. Objective vital signs Vital Sign Date Time Temp Pulse Resp B/P (MAP) Pulse Ox O2 Delivery O2 Flow Rate FiO2 04/21/25 14:25 88 17 99 04/21/25 14:19 Nasal Cannula* 2 28 04/21/25 12:30 98.9 151/93 (112) 98.9 Total Intake and Output 04/20/25 04/20/25 04/21/25 15:00 23:00 07:00 Intake Total 600 ml 800 ml Output Total 650 ml Balance -50 ml 800 ml medications Current Medications Medications Dose Ordered Sig/Ronn Route Start Time Stop Time Status Last Admin Dose Admin Acetaminophen 650 mg Q6HP PRN PO 04/19/25 22:30 Azithromycin 250 mg DAILY PO 04/20/25 10:00 04/21/25 09:29 250 MG Ceftriaxone Sodium 50 ml @ 100 mls/hr DAILY IV 04/20/25 10:00 04/21/25 09:29 100 MLS/HR Ipratropium [place] 0.5 mg Q4HR NEB 04/20/25 02:00 04/21/25 14:19 0.5 MG Levalbuterol HCl 1.25 mg Q4HR NEB 04/20/25 02:00 04/21/25 14:19 1.25 MG Carvedilol 3.125 mg BID PO 04/19/25 23:00 04/21/25 09:29 3.125 MG Methylprednisolone Sodium Succinate 40 mg BID IV 04/20/25 22:00 04/21/25 09:28 40 MG Enoxaparin Sodium 40 mg DAILY SC 04/21/25 10:00 04/21/25 09:28 40 MG Examination General Appearance: Alert, Oriented X3, Cooperative, mild distress HEENT: Atraumatic, PERRLA, EOMI, Mucous membr. moist/pink Respiratory: Normal air movement, Other (Very mild wheezing) Cardiovascular: Regular rate, Normal S1 Abdominal: Normal bowel sounds, Soft, No tenderness, No hepatospenomegaly Extremities: No clubbing, No cyanosis, No edema, Normal pulses, No tenderness/swelling Skin: No rashes, No breakdown, No significant lesion Neuro: Normal gait, Normal speech, Strength at 5/5 X4 ext, Normal tone, Sensation intact, Cranial nerves 3-12 NL, Reflexes 2+ Psych/Mental Status: Mental status NL, Mood NL laboratory and microbiology Laboratory Tests 04/21/25 09:21 Test 04/21/25 09:21 Range/Units Serum Glucose 181 H 74-106 mg/dL Microbiology Date/Time Source Procedure Growth Status 04/19/25 22:06 Blood Blood Culture - Preliminary NO GROWTH AFTER 24 HOURS OF INCUBATION. Resulted 04/19/25 14:18 Sputum Gram Stain - Final Resulted 04/19/25 14:18 Sputum Respiratory Culture - Preliminary Resulted Labs and/or images reviewed: Labs reviewed by me, Image(s) reviewed by me Problem List/Assessment/Plan Problem List/Assessment/Plan Acute hypoxic respiratory failure likely due to COPD exacerbation Sepsis secondary to Possible acute gram positive/negative bacterial pneumonia R/O pulmonary embolism -chest x-ray showed bilateral hyperinflated lungs with no evident of consolidation -WBC significantly elevated at 21.3 -currently on 2 L of oxygen through nasal cannula -azithromycin p.o. -IV ceftriaxone -methylprednisolone 40 mg IV b.i.d. daily -ordered COVID and influenza a and B tests negative -start med nebs albuterol and ipratropium q.4 scheduled - ct angio shows: 1. No acute pulmonary emboli. 2. No large focal consolidations. 3. Scattered tree and bud densities predominantly peripherally and bilateral lower lobes and endobronchial thickening may reflect atypical pneumonia and/or underlying chronic lung disease. 4. extensive pulmonary emphysema. -lactic acid (04/21) 2.4 -NaCl 1 bag given #Primary hypertension #Dyslipidemia #History of NV with one stent placed -cardiac diet -D-dimer was slightly elevated, venous doppler shows: No right or left femoropopliteal venous thrombosis. -start atorvastatin 40 mg daily -start aspirin 81 mg daily -start carvedilol 3.125 bid -monitor blood pressure and saturation closely #Unspecified active throat cancer -follows [facility] oncologist -CTX and radiation starting soon #prediabetic HGB A1c 6.0 -counseled regarding better diet, healthy lifestyle exercise #thoracic aortic aneurysm, ascending type -CT angio shows thoracic aortic aneurysm of 4.1 cm -closely monitor outpatient follow up -Outpatient CT yearly #Polysubstance abuse cannabinoid, amphetamine Patient counseled regarding cessation of the side effects as well as dangers of taking above substances Goals of care discussed with the patient for more than 27 minutes: Full code status Case discussed with , patient and nurse. Plan discussed with: Patient, Other (rn) My Orders My Orders Orders - ALLEN BENNETT Procedure Category Date Status Time Methylprednisolone PHA 04/20/25 In Process Sod Succ (Solu Medrol 22:00 Enoxaparin Sodium PHA 04/21/25 In Process (Lovenox) 10:00 Dietary Evaluation Review Comments: 1) Glucerna 240ml BID 2) Monitor PO intake, lab values, weight trend, and I/O Expected Outcomes/Goals: To meet >75% estimated needs Fu 3-5 days Date of Service: Apr 21, 2025 Billing Provider: KETAN JOHN MD Common Visit Codes: [id number] INP/OBS CARE(HIGH) ALLEN BENNETT Apr 21, 2025 14:55 KETAN JOHN MD Apr 21, 2025 23:32
[2025-04-21] MEDS: HYDROcodone-ACET 10/325MG TAB PO PRN (17:05)
[2025-04-21] MEDS: LISINOPRIL 5 MG TAB PO SCH (17:12)
[2025-04-21] MEDS: SODIUM CHLORIDE 0.9% 1,000 ML IV ONE (17:13)
[2025-04-22] VITALS (14 sets, daily range): BP systolic 117–175; BP diastolic 59–104; PULSE 71–98; RESP 16–19; TEMP 97.3–98; O2SAT 77–100
[2025-04-22 12:20] LABS: Hematocrit 42.4 % (41.0-53.0); Hemoglobin 14.6 g/dL (13.5-17.5); Mean Corpuscular Hemoglobin 29.4 pg (28.0-32.0); Mean Corpuscular Volume 85.6 fL (80.0-100.0); Nucleated Red Blood Cells % 0.0 %
[2025-04-22 12:35] LABS: Anion Gap 8 (5-15); Carbon Dioxide 28 mmol/L (20-31); Chloride 102 mmol/L (98-107); Potassium 4.5 mmol/L (3.5-5.1); Sodium 138 mmol/L (136-145)
[2025-04-22 12:36] LABS: Calcium 9.1 mg/dL (8.7-10.4)
[2025-04-22 12:41] LABS: BUN/Creatinine Ratio 25.8 (10.0-20.0); Blood Urea Nitrogen 25 mg/dL (9-23); Glucose 97 mg/dL (74-106)
[2025-04-22] MEDS ORDERED: METH4PAK PO (15:23)
[2025-04-22] MEDS ORDERED: AZIT-185 PO (15:23)
--- NOTE | 2025-04-22 16:15 | DVHDSRES ---
Discharge Summary Date of Admission Resident Creating Document: ALLEN BENNETT RESIDENT Apr 19, 2025 at 22:30 Date of Discharge: Apr 22, 2025 Admitting Diagnosis #Acute hypoxic respiratory failure likely due to COPD exacerbation Labs/Diagnostic Data: Laboratory Results Test 04/22/25 11:37 04/21/25 13:11 04/21/25 09:21 04/20/25 09:35 White Blood Count 21.5 10^3/uL (4.4-10.8) Red Blood Count 4.95 10^6/uL (4.5-5.90) Hemoglobin 14.6 g/dL (13.5-17.5) Hematocrit 42.4 % (41.0-53.0) Mean Corpuscular Volume 85.6 fL (80.0-100.0) Mean Corpuscular Hemoglobin 29.4 pg (28.0-32.0) Mean Corpuscular Hemoglobin Concent 34.4 g/dL (32.0-36.0) Red Cell Distribution Width 14.4 % (11.8-14.3) Platelet Count 269 10^3/uL (140-450) Mean Platelet Volume 8.2 fL (6.9-10.8) Neutrophils (%) (Auto) 93.3 % (37.0-80.0) Lymphocytes (%) (Auto) 1.8 % (10.0-50.0) Monocytes (%) (Auto) 4.8 % (0.0-12.0) Eosinophils (%) (Auto) 0.0 % (0.0-7.0) Basophils (%) (Auto) 0.1 % (0.0-2.0) Neutrophils # (Auto) 20.0 10 ^3/uL (1.6-8.6) Lymphocytes # (Auto) 0.4 10 ^3/uL (0.4-5.4) Monocytes # (Auto) 1.0 10 ^3/uL (0-1.3) Eosinophils # (Auto) 0 10 ^3/uL (0-0.8) Basophils # (Auto) 0 10 ^3/uL (0-0.2) Nucleated Red Blood Cells 0.0 % Sodium Level 138 mmol/L (136-145) Potassium Level 4.5 mmol/L (3.5-5.1) Chloride Level 102 mmol/L (98-107) Carbon Dioxide Level 28 mmol/L (20-31) Anion Gap 8 (5-15) Blood Urea Nitrogen 25 mg/dL (9-23) Creatinine 0.97 mg/dL (0.700-1.30) Glomerular Filtration Rate Calc 87 mL/min (>90) BUN/Creatinine Ratio 25.8 (10.0-20.0) Serum Glucose 97 mg/dL (74-106) Lactic Acid Level 1.5 mmol/L (0.4-2.0) Calcium Level 9.1 mg/dL (8.7-10.4) Troponin I High Sensitivity 7 ng/L (</=54) Creatine Kinase 29 U/L (46-171) Differential Total Cells Counted 100.0 (100) Neutrophils % (Manual) 92 (37.0-80.0) Band Neutrophils % (Manual) 0 Lymphocytes % (Manual) 5 (10.0-50.0) Monocytes % (Manual) 3 (0-12) Eosinophils % (Manual) 0 (0-7) Basophils % (Manual) 0 (0.0-2.0) Metamyelocytes % (manual) 0 Myelocytes % (Manual) 0 Promyelocytes % (Manual) 0 Blast Cells % (Manual) 0 Reactive Lymphocytes 0 Platelet Estimate Adequate Hepatitis B Surface Antigen Negative (Negative) Hepatitis C Antibody Negative (Negative) Test 04/20/25 09:00 04/19/25 23:00 04/19/25 19:11 Influenza Type A Antigen Negative (Negative) Influenza Type B Antigen Negative (Negative) SARS-CoV-2 Antigen (Rapid) Negative (NEGATIVE) Urine Color Yellow (Yellow) Urine Clarity Clear (Clear) Urine pH 5.5 (5.0-9.0) Urine Specific [place] > 1.050 (1.001-1.035) Urine Protein 1+ (Negative) Urine Ketones Negative (Negative) Urine Blood Negative /uL (Negative) Urine Nitrite Negative (Negative) Urine Bilirubin Negative (Negative) Urine Urobilinogen Normal mg/dL (Negative) Urine Leukocyte Esterase Negative /uL (Negative) Urine RBC None seen /hpf (0 - 3) Urine Microscopic WBC 1 /HPF (0-3) Urine Squamous Epithelial Cells Few /hpf (<5) Urine Bacteria None seen /hpf (None Seen) Urine Mucus Few (None Seen) Urine Glucose Normal mg/dL (Normal) Urine Opiates Screen Neg (NEGATIVE) Urine Fentanyl Screen Neg (NEGATIVE) Urine Barbiturates Screen Neg (NEGATIVE) Urine Phencyclidine Screen Neg (NEGATIVE) Urine Amphetamines Screen Pos (NEGATIVE) Urine Benzodiazepines Screen Neg (NEGATIVE) Urine Cocaine Screen Neg (NEGATIVE) Urine Cannabinoids Screen Pos (NEGATIVE) Prothrombin Time 10.5 sec (9.3-11.8) Prothrombin Time INR 0.99 (0.9-1.15) Activated Partial Thromboplast Time 27.6 SEC (24.5-34.5) D-Dimer, Quantitative 2.95 mg/L FEU (0.0-0.49) Hemoglobin A1c 6.0 % A1C (<5.7) Magnesium Level 1.8 mg/dL (1.6-2.6) Total Bilirubin 1.5 mg/dL (0.2-1.0) Aspartate Amino Transferase (AST) 17 U/L (13-40) Alanine Aminotransferase (ALT) 14 U/L (7-40) Alkaline Phosphatase 74 U/L (46-116) B-Type Natriuretic Peptide 62.84 pg/mL (0-100) Total Protein 6.7 g/dL (5.7-8.2) Albumin 4.4 g/dL (3.2-4.8) Triglycerides Level 67 mg/dL (< 150) Cholesterol Level 167 mg/dL (< 200) LDL Cholesterol 106 mg/dL (< 100) HDL Cholesterol 50 mg/dL (40-59) Thyroid Stimulating Hormone (TSH) 2.70 uIU/mL (0.55-4.78) Other Laboratory Tests 04/22/25 11:37 Brief Hx & Hospital Course: Pio Ferrara is [id number] male with past medical history of COPD, CO with PTCA and stent placed, hypertension, dyslipidemia. Patient presented to the ED with chief complaint of shortness of breaths associated with productive cough and sputum production. Patient denies any fever, chills, sick contacts or any travel history, chest pain. On admission, patient was in significant respiratory distress in triple position saturating 88% which improved after 4 L of oxygen via nasal cannula. Past medical history: COPD, CO, hypertension, dyslipidemia Past surgical history: PTCA with one stent placed Social history: Admits smoking marijuana but no cigarettes, alcohol or any other drugs Family History: None Lives: Friends Brief history of hospitalization: Patient came with acute hypoxic respiratory failure likely due to COPD exacerbation. A chest x-ray showed bilateral hyperinflated lung with no evidence of consolidation but CT angiography showed scattered tree-in-bud densities predominantly peripherally in bilateral lower lobes and endotracheal thickening may reflect atypical pneumonia and/or underlying chronic lung disease, Extensive pulmonary emphysema, No pulmonary embolism. We started the patient on 2 L of oxygen via nasal cannula and antibiotics azithromycin 1st intravenously later changed to per orally and IV ceftriaxone throughout his hospitalization. We also gave her methylprednisolone 40 mg intravenously twice a day. COVID and influenza tests were done which came back negative. We gave him breathing treatments with albuterol and ipratropium q.4 as scheduled. For patient's primary hypertension, dyslipidemia and history of CO with 1 stent placed started him on a cardiac diet. We checked his D-dimer levels which were elevated at a Doppler venous of his legs showed no thrombosis. We continued the patient on aspirin 81 mg daily, carvedilol 3.125 mg twice a day. We continued to monitor his blood pressure and saturation closely as well. You did the CT angiography we also so that he has thoracic aortic aneurysm of 4.1 cm. It is ascending type and we have counseled the patient regarding a yearly CT and to monitor closely outpatient follow up. For patient's polysubstance abuse of cannabinoid and amphetamine patient has been counseled regarding cessation and the side effects as well as dangers of taking such substances. Patient communicated understanding and is now stable for discharge. He is feeling much better and has agreed to the discharge plan. We have also counseled him regarding follow up with his doctor in [place] regarding his throat cancer and patient confirmed that he has an appointment on the 27 April 2025 which he will be going for. General Appearance: Alert, Oriented X3, Cooperative, mild distress HEENT: Atraumatic, PERRLA, EOMI, Mucous membr. moist/pink Respiratory: Normal air movement, Other (Very mild crackles and mild wheezing) Cardiovascular: Regular rate, Normal S1 Abdominal: Normal bowel sounds, Soft, No tenderness, No hepatospenomegaly Extremities: No clubbing, No cyanosis, No edema, Normal pulses, No tenderness/swelling Skin: No rashes, No breakdown, No significant lesion Neuro: Normal gait, Normal speech, Strength at 5/5 X4 ext, Normal tone, Sensation intact, Cranial nerves 3-12 NL, Reflexes 2+ Psych/Mental Status: Mental status NL, Mood NL Operations or Procedures XY CHEST TWO VIEWS ROUTINE CLINICAL HISTORY: sob IMPRESSION: No acute cardiopulmonary disease. STUDY: CT CT ANGIO CHEST CONTRAST Indication: Pulmonary embolism IMPRESSION: 1. No acute pulmonary emboli. 2. No large focal consolidations. 3. Scattered tree and bud densities predominantly peripherally and bilateral lower lobes and endobronchial thickening may reflect atypical pneumonia and/or underlying chronic lung disease. 4. extensive pulmonary emphysema. 5. minimally dilated ascending thoracic aorta measuring up to 4.1cm. Bilateral lower extremity venous duplex Clinical History: high d dimer IMPRESSION: No right or left femoropopliteal venous thrombosis. If clinical concern/symptoms persist or worsen, short-interval follow-up study is suggested. Condition at Discharge: Stable Final Diagnosis/Problems List #Acute hypoxic respiratory failure likely due to COPD exacerbation #Possible acute gram positive/negative bacterial pneumonia #ruled out pulmonary embolism #Primary hypertension #Dyslipidemia #History of CO with one stent placed #thoracic aortic aneurysm, ascending type #Polysubstance abuse cannabinoid, amphetamine Discharge Disposition: Home Discharge Instruct/Medications Diet: Consistent carbohydrate, Cardiac 2g Na,low cholest Activity: No Restrictions, As Tolerated Follow Up/Referral: Follow up with primary care physician in 10 days Follow up at discharge clinic within 7 days Follow up regarding throat cancer at [place] on the 27 of April (according to appointment) Medications: Tablet Z-Arie as instructed Tablet Medrol Dosepak as instructed Scheduled Aspirin (Aspirin Low Dose), 1 TAB PO DAILY, (Reported) Atorvastatin Calcium (Atorvastatin Calcium), 1 TAB PO DAILY, (Reported) Azithromycin (Zithromax Tablet), 250 MG PO DAILY Ergocalciferol (Vitamin D), 1 CAP PO QWEEKLY, (Reported) Famotidine (Pepcid Tablet), 1 TAB PO BID Levofloxacin Hemihydrate (Levofloxacin), 1 TAB PO DAILY Lisinopril (Lisinopril), 10 MG PO DAILY Methylprednisolone (Medrol Dosepak), 4 MG PO UD Metoprolol Tartrate (Lopressor), 1 TAB PO BID, (Reported) Metronidazole (Flagyl), 1 TAB PO BID Metronidazole (Flagyl), 1 TAB PO BID Scheduled PRN Albuterol Sulfate (Ventolin Mdi), 90 MCG IN Q4HPRN PRN Discharge Statement: "Patient was advised to return to the ER or call 911 if any headaches, dizziness, shortness of breath, chest pain, abdominal pain, bleeding, fevers, or worsening of medical condition. Patient was counseled about treatment plan, medications, possible side effects, patientverbalized understanding. All questions were answered to the best of my ability. This discharge took greater then 30 minutes in planning, reviewing documentation, counseling the patient, and discussing with other team members." ASSESSMENT ASSESSMENT Assessment Acute hypoxic respiratory failure likely due to COPD exacerbation Sepsis secondary to possible acute Gram-positive/negative bacterial pneumonia ALLEN BENNETT RESIDENT Apr 22, 2025 16:15
== END 2025-04-22 17:40 | disposition home or self-care (01) | DRG 720 ==
LOC: ER 17:45 → EDBD 17:45 → OVERFLOW 22:30 → WEST WING 04-20 03:58
PROVIDERS: ADMIT Internal Medicine; ATTEND Emergency Medicine
DX: A41.50 Gram-negative sepsis, unspecified (principal); J96.01 Acute respiratory failure with hypoxia; J15.69 Pneumonia due to other Gram-negative bacteria; J15.9 Unspecified bacterial pneumonia; J44.0 Chronic obstructive pulmonary disease with (acute) lower respiratory infection; C14.0 Malignant neoplasm of pharynx, unspecified; J44.1 Chronic obstructive pulmonary disease with (acute) exacerbation; I71.21 Aneurysm of the ascending aorta, without rupture; Z20.822 Contact with and (suspected) exposure to COVID-19; I10 Essential (primary) hypertension; E78.5 Hyperlipidemia, unspecified; F19.10 Other psychoactive substance abuse, uncomplicated; F12.10 Cannabis abuse, uncomplicated; F15.10 Other stimulant abuse, uncomplicated; R73.03 Prediabetes; I25.2 Old myocardial infarction; Z98.61 Coronary angioplasty status
CPT/HCPCS: 36415; 71046; 71275; 80048; 80053; 80061; 80307; 81001; 82550; 83036; 83605; 83735; 83880; 84443; 84484; 85007; 85025; 85027; 85379; 85610; 85730; 86803; 87040; 87070; 87205; 87340; 87426; 87804; 93005; 93970; 94640; 96365; G0378

== ENCOUNTER 2025-06-23 01:39 | Emergency (ER) | payer MEDICAID ==
[~2025-06-23] VITALS: Ht 182.9 cm; Wt 72.0 kg
[2025-06-23 01:39] VITALS: BP 142/87; RESP 16; TEMP 98.8; O2SAT 97
[~2025-06-23 01:39] MED LIST changes: +AZIT-185 PO; -LEVO500T91 PO; +METH4PAK PO; -METR-344 PO
--- NOTE | 2025-06-23 01:44 | ECG ---
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
--- NOTE | 2025-06-23 01:57 | ED.PDOC ---
HPI Comments 65-year-old male who came to ER via EMS for chest pains. Patient has history of hypertension, COPD, and tongue cancer. Currently on chemotherapy for the past 5 weeks. States whenever he gets his chemotherapy, he develops burning midsternal chest pains, associated with shortness of breath. Having chest pains again earlier today so paramedics were called, was saturating 93% room air, with a blood pressure of 198/119 mm Hg Chief Complaint: Chest pain Time Seen by MD: 01:57 Primary Care Provider: NONE Reviewed Notes: Tenant Coordinator Notes Allergies: Coded Allergies: NO KNOWN ALLERGIES (Unverified , 01/25/16) Home Meds Active Scripts Methylprednisolone (Medrol Dosepak) 4 Mg Arie, 4 MG PO UD, #21 TAB UAD Prov:KETAN JOHN MD 04/22/25 Azithromycin (ZITHROMAX TABLET) 250 Mg Tb, 250 MG PO DAILY, #6 TAB take 2 tabs the first day, then 1 tab daily until finish Prov:KETAN JOHN MD 04/22/25 Famotidine (PEPCID TABLET) 20 Mg Tb, 1 TAB PO BID, #60 TAB 5 Refills Prov:AJ TURNER NP 03/28/23 Albuterol Sulfate (VENTOLIN MDI) 90 Mcg Ih, 90 MCG IN Q4HPRN PRN, #1 INH Prov:KETAN JOHN MD 08/31/22 Lisinopril (Lisinopril) 10 Mg Tab, 10 MG PO DAILY, #30 TAB 5 Refills Prov:KETAN JOHN MD 08/31/22 Reported Medications Metoprolol Tartrate (Lopressor) 25 Mg Tb, 1 TAB PO BID TAKE WITH FOOD 08/29/22 Atorvastatin Calcium (ATORVASTATIN CALCIUM) 20 Mg Tab, 1 TAB PO DAILY 08/29/22 Aspirin (Aspirin Low Dose) 81 Mg Tab, 1 TAB PO DAILY 08/29/22 Ergocalciferol (Vitamin D) 50,000 Unit Cap, 1 CAP PO QWEEKLY 08/29/22 Information Source: Patient, Emergency Med Personnel Mode of Arrival: EMS Severity: Moderate Timing: Hours Duration: Intermittent Location: Substernal Past Medical History PAST MEDICAL HISTORY: Cancer, COPD, High Lipids, HTN, OH, Thyroid Surgical History: PTCA Surgical History (Other): Chemotherapy Family History Family History: No family hx of Cancer, No family hx of Liver hoda Social History Smoker: Non-Smoker Alcohol: Denies ETOH Use Drugs: Denies Drug Use Lives In: Home Constitutional: denies: chills, diaphoresis, fatigue, fever, malaise, sweats, weakness, others EENTM: denies: blurred vision, double vision, ear bleeding, ear discharge, ear drainage, ear pain, ear ringing, eye pain, eye redness, hearing loss, mouth pain, mouth swelling, nasal discharge, nose bleeding, nose congestion, nose pain , photophobia, tearing, throat pain, throat swelling, voice changes, others Respiratory: reports: shortness of breath, SOB with excertion; denies: cough, hemoptysis, orthopnea, SOB at rest, stridor, wheezing, others Cardiovascular: reports: chest pain; denies: dizzy spells, diaphoresis, Dyspnea on exertion, edema, irregular heart beat, left arm pain, lightheadedness, palpitations, PND, syncope, others Gastrointestinal: denies: abdomen distended, abdominal pain, blood streaked bowels, constipated, diarrhea, dysphagia, difficulty swallowing, hematemesis, melena, nausea, poor appetite, poor fluid intake, rectal bleeding, rectal pain, vomiting, others Genitourinary: denies: burning, dysuria, flank pain, frequency, hematuria, incontinence, penile discharge, penile sore, pain, testicle pain, testicle swelling, urgency, others Neurological: denies: dizziness, fainting, headache, left sided numbness, left sided weakness, numbness, paresthesia, pre-existing deficit, right sided numbness, right sided weakness, seizure, speech problems, tingling, tremors, weakness, others Musculoskeletal: denies: back pain, gout, joint pain, joint swelling, muscle pain, muscle stiffness, neck pain, others Integumetry: denies: bruises, change in color, change in hair/nails, dryness, laceration, lesions, lumps, rash, wounds, others Allergic/Immunocompromised: denies: Difficulty Healing, Frequent Infections, Hives, Itching, others Hematologic/Lymphatic: denies: anemia, blood clots, easy bleeding, easy bruising, swollen glands, others Endocrine: denies: excessive hunger, excessive sweating, excessive thirst, excessive urination, flushing, intolerance to cold, intolerance to heat, unexplained weight gain, unexplained weight loss, others Psychiatric: denies: anxiety, bipolar disorder, depression, hopeless, panic disorder, schizophrenia, sleepless, suicidal, others Physical Exam General Appearance: No Apparent Distress, Normal HEENT: Normal ENT Inspection, Pharynx Normal, TMs Normal Neck: Full Range of Motion, Non-Tender, Normal, Normal Inspection Respiratory: Chest Non-Tender, Lungs Clear, No Accessory Muscle Use, No Respiratory Distress, Normal Breath Sounds Cardiovascular: No Edema, No JVD, No Murmur, No Gallop, Normal Peripheral Pulses, Regular Rate/Rhythm Breast Exam: Deferred Gastrointestinal: No Organomegaly, Non Tender, No Pulsatile Mass, Normal Bowel Sounds, Soft Genitalia: Deferred Pelvic: Deferred Rectal: Deferred Extremities: No calf tenderness, Normal capillary refill, Normal inspection, No rmal range of motion, Non-tender, No pedal edema Musculoskeletal : Apperance: Normal Neurologic: Alert, family helper II-XII nml as Tested, No Motor Deficits, Normal Affect, Normal Mood, No Sensory Deficits Cerebellar Function: Normal Reflexes: Normal Skin: Dry, Normal Color, Warm Lymphatic: No Adenopathy EKG EKG : Pulse Rate (adult): 99 Cardiac Rhythm: NSR Hypertrophy: LVH Was a procedure done? Was a procedure done?: No CP Differential Dx Differential Diagnosis: A-fib, A-Flutter, Electrolyte Disorder, Hyperventilation, OH, PAC's, V-Fib, V-Tach, Other Differential Diagnosis: Angina, Chest Wall Pain, Costochondritis, Esophageal reflux/spasm, Gastritis, Myocardial Infarction, Pneumonia, Pulmonary Embolus X-Ray, Labs, Meds, VS Vital Signs Date Time Temp Pulse Resp B/P (MAP) Pulse Ox O2 Delivery O2 Flow Rate FiO2 06/23/25 02:37 91 06/23/25 01:57 99 06/23/25 01:39 99 06/23/25 01:39 98.8 96 16 142/87 97 98.8 Lab Test 06/23/25 01:57 Range/Units White Blood Count 5.0 4.4-10.8 10^3/uL Red Blood Count 3.78 L 4.5-5.90 10^6/uL Hemoglobin 11.1 L 13.5-17.5 g/dL Hematocrit 33.3 L 41.0-53.0 % Mean Corpuscular Volume 87.9 80.0-100.0 fL Mean Corpuscular Hemoglobin 29.4 28.0-32.0 pg Mean Corpuscular Hemoglobin Concent 33.4 32.0-36.0 g/dL Red Cell Distribution Width 16.3 H 11.8-14.3 % Platelet Count 266 140-450 10^3/uL Mean Platelet Volume 8.5 6.9-10.8 fL Neutrophils (%) (Auto) 97.5 H 37.0-80.0 % Lymphocytes (%) (Auto) 1.3 L 10.0-50.0 % Monocytes (%) (Auto) 1.1 0.0-12.0 % Eosinophils (%) (Auto) 0.0 0.0-7.0 % Basophils (%) (Auto) 0.1 0.0-2.0 % Neutrophils # (Auto) 4.9 1.6-8.6 10 ^3/uL Lymphocytes # (Auto) 0.1 L 0.4-5.4 10 ^3/uL Monocytes # (Auto) 0.1 0-1.3 10 ^3/uL Eosinophils # (Auto) 0 0-0.8 10 ^3/uL Basophils # (Auto) 0 0-0.2 10 ^3/uL Nucleated Red Blood Cells 0.1 % Sodium Level 135 L 136-145 mmol/L Potassium Level 4.8 3.5-5.1 mmol/L Chloride Level 100 98-107 mmol/L Carbon Dioxide Level 27 20-31 mmol/L Anion Gap 8 5-15 Blood Urea Nitrogen 38 H 9-23 mg/dL Creatinine 0.93 0.700-1.30 mg/dL Glomerular Filtration Rate Calc 92 >90 mL/min BUN/Creatinine Ratio 40.9 H 10.0-20.0 Serum Glucose 172 H 74-106 mg/dL Calcium Level 9.3 8.7-10.4 mg/dL Magnesium Level 2.1 1.6-2.6 mg/dL Total Bilirubin 0.9 0.2-1.0 mg/dL Aspartate Amino Transferase (AST) 25 13-40 U/L Alanine Aminotransferase (ALT) 34 7-40 U/L Alkaline Phosphatase 78 46-116 U/L Troponin I High Sensitivity 6 </=54 ng/L B-Type Natriuretic Peptide 119.87 0-100 pg/mL Total Protein 6.8 5.7-8.2 g/dL Albumin 4.3 3.2-4.8 g/dL CHEST RADIOGRAPH Indication: chest pain Technique: Single frontal view of the chest was obtained COMPARISON: XY CHEST TWO VIEWS ROUTINE on DOS: 04/19/25, XY CHEST TWO VIEWS ROUTINE on DOS: 10/27/24, CHEST PORTABLE on DOS: 09/06/22, CXRP on DOS: 09/06/22, CXRP on DOS: 08/28/22 FINDINGS: Lines and Tubes: None Lungs: Clear. Chronic appearing bibasilar scarring. Pleura: No effusion. No pneumothorax. Cardiomediastinal contours: Unremarkable Bones: Unremarkable IMPRESSION: 1. No radiographic evidence of acute cardiopulmonary abnormality. Time of 1ST Reevaluation: 01:53 Reevaluation 1ST: Unchanged Patient Education/Counseling: Diagnosis, Treatment Family Education/Counseling: No Family Present SEPSIS Sepsis Screen Physician Orders Electrocardigram (06/23/25 04:41) Troponin-I Hs (06/23/25 02:48) Troponin-I Hs (06/23/25 04:48) Chest Xray 1 View (06/23/25 01:48) Vital Signs Date Time Temp Pulse Resp B/P (MAP) Pulse Ox O2 Delivery O2 Flow Rate FiO2 06/23/25 02:37 91 06/23/25 01:57 99 06/23/25 01:39 99 06/23/25 01:39 98.8 96 16 142/87 97 98.8 Laboratory Tests Test 06/23/25 01:57 White Blood Count 5.0 10^3/uL (4.4-10.8) Departure 1 Departure Time of Disposition: 03:20 Impression: Primary Impression: Dehydration Additional Impressions: Tongue cancer Chemotherapy adverse reaction Intermediate coronary syndrome Disposition: 09 ADMITTED INPATIENT Admit to: [facility] Condition: Guarded Discharged With: Self Comments 65-year-old male with a history of tongue cancer on chemotherapy now developed some chest pain after receiving care with chemotherapy tonight. Patient is a bit dehydrated. Lab results reviewed. Patient will need to be admitted for supportive care and further workup. Critical Care Note Critical Care Time?: Yes (35 min-critical care time only) Critical care comment: Chest pain Stability Stability form required: No Heart Score Heart Score: Heart Score Response (Comments) Value History Moderate Suspicious 1 EKG Normal 0 Age 45-64 1 Risk Factors 1 or 2 risk factors 1 Troponin Normal limit 0 Total 3 I personally scribed for CONTRERAS LOMAX MD ([email or web address] [email or web address]) on 06/23/25 at 01:57. Electronically submitted by Bhargav Pryor ([employer]). I personally scribed for CONTRERAS LOMAX MD ([email or web address]) on 06/23/25 at 02:48. Electronically submitted by Bhargav Pryor ([employer]). CONTRERAS LOMAX MD Jun 23, 2025 01:57
[2025-06-23 02:17] LABS: Hematocrit 33.3 % (41.0-53.0); Hemoglobin 11.1 g/dL (13.5-17.5); Mean Corpuscular Hemoglobin 29.4 pg (28.0-32.0); Mean Corpuscular Volume 87.9 fL (80.0-100.0); Nucleated Red Blood Cells % 0.1 %
--- NOTE | 2025-06-23 02:32 | DVH ---
CHEST RADIOGRAPH Indication: chest pain Technique: Single frontal view of the chest was obtained COMPARISON: XY CHEST TWO VIEWS ROUTINE on DOS: 04/19/25, XY CHEST TWO VIEWS ROUTINE on DOS: 10/27/24, C HEST PORTABLE on DOS: 09/06/22, CXRP on DOS: 09/06/22, CXRP on DOS: 08/28/22 FINDINGS: Lines and Tubes: None Lungs: Clear. Chronic appearing bibasilar scarring. Pleura: No effusion. No pneumothorax. Cardiomediastinal contours: Unremarkable Bones: Unremarkable IMPRESSION: 1. No radiographic evidence of acute cardiopulmonary abnormality.
[2025-06-23 02:37] VITALS: PULSE 91
--- NOTE | 2025-06-23 02:39 | ECG ---
[facility] Test Date: 2025-06-23 Test Time: 02:37:30 Pat Name: MATILDE PANDYA Department: [facility] ED Patient ID: [facility]-[id number] Room: Gender: M Email Specialist: GHISLAINE : 1960 Requested By: CONTRERAS LOMAX Order Number: [id number] Reading MD: Gonzalez Iverson Measurements Intervals [place] Rate: 91 P: 77 [place]: 143 QRS: 27 QRSD: 93 T: 70 QT: 361 QTc: 445 Interpretive Statements Sinus rhythm Probable left ventricular hypertrophy ST elevation, consider anterior injury Baseline wander in lead(s) V3 Electronically Signed On 06-24-2025 18:47:29 PDT by Gonzalez Iverson Please click the below link to view image of tracing.
[2025-06-23 02:45] LABS: Alanine Aminotransferase 34 U/L (7-40); Albumin 4.3 g/dL (3.2-4.8); Alkaline Phosphatase 78 U/L (46-116); Anion Gap 8 (5-15); BUN/Creatinine Ratio 40.9 (10.0-20.0); Calcium 9.3 mg/dL (8.7-10.4); Carbon Dioxide 27 mmol/L (20-31); Chloride 100 mmol/L (98-107); Magnesium 2.1 mg/dL (1.6-2.6); Potassium 4.8 mmol/L (3.5-5.1); Total Protein 6.8 g/dL (5.7-8.2)
[2025-06-23 02:46] LABS: Bilirubin, Total 0.9 mg/dL (0.2-1.0)
[2025-06-23 03:01] LABS: Blood Urea Nitrogen 38 mg/dL (9-23); Glucose 172 mg/dL (74-106); Sodium 135 mmol/L (136-145)
--- NOTE | 2025-06-23 04:37 | ECG ---
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
== END 2025-06-23 06:47 | disposition left against medical advice (07) ==
LOC: EDBD 01:39 → EDUNIT# 01:39 → ER 01:41
DX: C02.9 Malignant neoplasm of tongue, unspecified (principal); I24.9 Acute ischemic heart disease, unspecified; E86.0 Dehydration; T45.1X5A Adverse effect of antineoplastic and immunosuppressive drugs, initial encounter; Y92.89 Other specified places as the place of occurrence of the external cause; I10 Essential (primary) hypertension; I25.2 Old myocardial infarction; J44.9 Chronic obstructive pulmonary disease, unspecified; E78.5 Hyperlipidemia, unspecified; Z79.899 Other long term (current) drug therapy; Z85.850 Personal history of malignant neoplasm of thyroid; Z85.810 Personal history of malignant neoplasm of tongue; Z79.82 Long term (current) use of aspirin
CPT/HCPCS: 36415; 71045; 80053; 83735; 83880; 84484; 85025; 93005; 99291